=== PATIENT | male | born 1930 | race African-American/Black ===

== ENCOUNTER 2016-11-13 14:03 | Emergency (ER) | payer MEDICARE, OTHER ==
[~2016-11-13] VITALS: Ht 177.8 cm; Wt 65.8 kg
[~2016-11-13 14:03] MED LIST: ACET325T9 PO; ALPR0.25 PO; AMIN30LI PO; AMIO200T2 PO; ASCO500T3 PO; ASPI325T8 PO; CALC0.25 PO; CARV12.5 PO; CHOL100014 PO; CLON0.1T PO; FEXO180T81 PO; FURO-69 PO; HYDR-2758 PO; IPRA3AMP IH; LOSA100T6 PO; MAGN400T3 PO; MULT-245 PO; NITR0.4T22 SL; NITR1PAT11 TD; NITR1PAT5 TD; OMEP20TA8 PO; ONDA4TAB7 PO; POLY17PO29 PO; SERT50TA PO; SIMV20TA3 PO; SODI650T PO; VIT1TABL57 PO
--- NOTE | 2016-11-13 15:41 | RAD ---
Chest x-ray Indication: Shortness of breath Technique: Portable AP upright chest x-ray Comparison: Previous study from 06/02/2014 Findings: Stable position of left chest wall cardiac device with its leads projecting over the heart. Heart is slightly enlarged in size. Interstitial opacities are seen in the medial aspect of the bilateral lower lobes, left more than right.. No pneumothorax or pleural effusion. Visualized bony thorax is within normal limits. Impression: Prominent interstitial opacities in the medial aspect of the bilateral lower lobes, left more than right may suggest infectious process.
[2016-11-13 15:47] LABS: BASO # 0.1 x10^3/uL (0.0-0.2); BASO % 1 % (0-3); EOS % 2 % (0-3); HEMATOCRIT 27.6 % (39.0-53.0); LYMPH # 0.9 x10^3/uL (1.0-4.8); LYMPH % 14 % (24-48); MEAN CORPUSCULAR HEMOGLOBIN 33 pg (25-35); MEAN CORPUSCULAR HGB CONC 33 g/dL (31-37); MEAN CORPUSCULAR VOLUME 99 fL (79-100); MONO % 12 % (0-9); NEUT % 71 % (31-73); PLATELET COUNT 243 x10^3/uL (140-400); RED BLOOD COUNT 2.78 x10^6/uL (4.30-5.70); RED CELL DISTRIBUTION WIDTH 17.5 % (11.5-14.5)
[2016-11-13 16:04] LABS: CALCIUM 8.6 mg/dL (8.5-10.1); CREATININE 10.8 mg/dL (0.7-1.3); GFR 5.5
[2016-11-13 16:05] LABS: POTASSIUM 4.9 mmol/L (3.5-5.1)
--- NOTE | 2016-11-13 17:27 | PHYS DOC ---
Past Medical History Past Medical History: A-Fib, Anemia, Anxiety, CHF, Depression, GERD, High Cholesterol, Heart Disease, Hypertension, Renal Disease, Renal Failure, Other Additional Past Medical Histor: kidney disease, edema, PVD, cardiac tamponade, Past Surgical History: Appendectomy, Pacemaker Additional Past Surgical Histo: right kidney removed; vasectomy Alcohol Use: None Drug Use: None Adult General Chief Complaint Chief Complaint: DIALYSIS PROBLEM HPI HPI Patient is a 86 year old male [facility] patient with history of end-stage renal disease requiring dialysis who presents with a blocked left upper extremity AV fistula. Patient has an outpatient fistulogram scheduled tomorrow morning per interventional radiology. He was referred to the emergency department for evaluation. Patient eyes chest pain shortness of breath, dizziness or lightheadedness. No other acute symptoms or complaints.[] Review of Systems Review of Systems His symptoms as per history of present illness. All other review symptoms are negative. Allergies Allergies Allergies Coded Allergies Type Severity Reaction Last Updated Verified No Known Medication Allergies Allergy Unknown 03/30/14 Yes Physical Exam Physical Exam Constitutional: Well developed, well nourished, no acute distress, non-toxic appearance. [] HENT: Normocephalic, atraumatic, bilateral external ears normal, oropharynx moist, no oral exudates, nose normal. [] Eyes: PERRLA, EOMI, conjunctiva normal, no discharge. [] Neck: Normal range of motion, no tenderness, supple, no stridor. [] Cardiovascular:Heart rate regular rhythm, no murmur [] Lungs & Thorax: Bilateral breath sounds clear to auscultation [] Abdomen: Bowel sounds normal, soft, no tenderness, no masses, no pulsatile masses. [] Skin: Warm, dry, no erythema, no rash. [] Back: No tenderness, no CVA tenderness. [] Extremities: L Upper extremity, AV fistula, palpable thrill. No active bleeding. Distal pulses. [] Neurologic: Alert and oriented X 3, normal motor function, normal sensory function, no focal deficits noted. [] Psychologic: Affect normal, judgement normal, mood normal. [] Current Patient Data Vital Signs Vital Signs Date Time Temp Pulse Resp B/P (MAP) Pulse Ox O2 Delivery O2 Flow Rate FiO2 11/13/16 18:52 67 20 143/82 (102) 96 Room Air 11/13/16 14:05 97.7 97.7 Lab Values Laboratory Tests Test 11/13/16 15:39 White Blood Count 7.0 x10^3/uL (4.0-11.0) Red Blood Count 2.78 x10^6/uL (4.30-5.70) L Hemoglobin 9.0 g/dL (13.0-17.5) L Hematocrit 27.6 % (39.0-53.0) L Mean Corpuscular Volume 99 fL (79-100) Mean Corpuscular Hemoglobin 33 pg (25-35) Mean Corpuscular Hemoglobin Concent 33 g/dL (31-37) Red Cell Distribution Width 17.5 % (11.5-14.5) H Platelet Count 243 x10^3/uL (140-400) Neutrophils (%) (Auto) 71 % (31-73) Lymphocytes (%) (Auto) 14 % (24-48) L Monocytes (%) (Auto) 12 % (0-9) H Eosinophils (%) (Auto) 2 % (0-3) Basophils (%) (Auto) 1 % (0-3) Neutrophils # (Auto) 5.0 x10^3uL (1.8-7.7) Lymphocytes # (Auto) 0.9 x10^3/uL (1.0-4.8) L Monocytes # (Auto) 0.8 x10^3/uL (0.0-1.1) Eosinophils # (Auto) 0.2 x10^3/uL (0.0-0.7) Basophils # (Auto) 0.1 x10^3/uL (0.0-0.2) Sodium Level 141 mmol/L (136-145) Potassium Level 4.9 mmol/L (3.5-5.1) Chloride Level 104 mmol/L (98-107) Carbon Dioxide Level 21 mmol/L (21-32) Anion Gap 16 (6-14) H Blood Urea Nitrogen 54 mg/dL (8-26) H Creatinine 10.8 mg/dL (0.7-1.3) H Estimated GFR (Cockcroft-Gault) 5.5 Glucose Level 102 mg/dL (70-99) H Calcium Level 8.6 mg/dL (8.5-10.1) Laboratory Tests 11/13/16 15:39 Laboratory Tests 11/13/16 15:39 EKG EKG [] Radiology/Procedures Radiology/Procedures [Chest x-ray: No disease per radiology report] Course & Med Decision Making Course & Med Decision Making Pertinent Labs and Imaging studies reviewed. (See chart for details) [Patient asymptomatic. Since stable. No findings of congestive heart failure. I did speak with the on-call interventional ] Dragon Disclaimer Dragon Disclaimer This electronic medical record was generated, in whole or in part, using a voice recognition dictation system. Departure Departure Impression: Primary Impression: Complication of AV dialysis fistula Disposition: HOME, SELF-CARE Condition: STABLE Referrals: SURAJ FIGUEROA MD (PCP) Patient Instructions: Medical Screening Exam Additional Instructions: Memo was evaluated for a blocked AV fistula. Memo's potassium level is stable. An outpatient fistulogram is scheduled tomorrow morning at [facility] at 07:00. This appointment has been confirmed with interventional radiology scheduling. Please keep nothing by mouth after midnight and arrive at [facility] at scheduled time. FRANCESCA FOSTER DO Nov 13, 2016 17:27
[2016-11-13 18:52] VITALS: BP 143/82
[2016-11-14] MEDS ORDERED: MIRT15TA PO (07:55)
[2016-11-14] MEDS ORDERED: PANT40TA3 PO (07:55)
[2016-11-14] MEDS ORDERED: ASPI-482 PO (17:41)
[2016-11-14] MEDS ORDERED: MELA3TAB2 PO (17:57)
[2016-11-14] MEDS ORDERED: SENN8.6T99 PO (17:57)
[2016-11-14] MEDS ORDERED: RANI150C PO (17:57)
[2016-11-14] MEDS ORDERED: DOCU-109 PO (17:57)
== END 2016-11-13 18:55 | disposition home or self-care (01) ==
LOC: ER 14:03
DX: T82.898A Other specified complication of vascular prosthetic devices, implants and grafts, initial encounter (principal); I12.0 Hypertensive chronic kidney disease with stage 5 chronic kidney disease or end stage renal disease; N18.6 End stage renal disease; I50.9 Heart failure, unspecified; Z99.2 Dependence on renal dialysis; Z95.0 Presence of cardiac pacemaker; I48.91 Unspecified atrial fibrillation; E78.00 Pure hypercholesterolemia, unspecified; K21.9 Gastro-esophageal reflux disease without esophagitis; I73.9 Peripheral vascular disease, unspecified; Z90.49 Acquired absence of other specified parts of digestive tract; F32.9 Major depressive disorder, single episode, unspecified; Y84.8 Other medical procedures as the cause of abnormal reaction of the patient, or of later complication, without mention of misadventure at the time of the procedure; Y92.89 Other specified places as the place of occurrence of the external cause
CPT/HCPCS: 36415; 71010; 80048; 85025; 99285-25

== ENCOUNTER 2016-11-14 06:55 | Outpatient (CLI) | payer MEDICARE, OTHER ==
[~2016-11-14] VITALS: Ht 170.2 cm; Wt 72.6 kg
[2016-11-14 07:46] LABS: BASO # 0.1 x10^3/uL (0.0-0.2); BASO % 1 % (0-3); EOS % 2 % (0-3); HEMATOCRIT 31.4 % (39.0-53.0); LYMPH % 13 % (24-48); MEAN CORPUSCULAR HEMOGLOBIN 32 pg (25-35); MEAN CORPUSCULAR HGB CONC 32 g/dL (31-37); MEAN CORPUSCULAR VOLUME 99 fL (79-100); MONO % 7 % (0-9); NEUT % 78 % (31-73); PLATELET COUNT 305 x10^3/uL (140-400); RED BLOOD COUNT 3.15 x10^6/uL (4.30-5.70); WHITE BLOOD COUNT 7.9 x10^3/uL (4.0-11.0)
[2016-11-14] MEDS ORDERED: IODIXANOL 320 MG/ML 100 ML VIAL. ONE (07:49)
[2016-11-14] MEDS ORDERED: LIDOCAINE 1% / SOD BICARB 8.4% 20 ML VIAL. IJ ONE ×2 (07:49→09:15)
[2016-11-14] MEDS ORDERED: PANT40TA3 PO (07:55)
[2016-11-14] MEDS ORDERED: MIRT15TA PO (07:55)
[2016-11-14 08:03] LABS: INR 0.9 (0.8-1.1); PROTHROMBIN TIME PATIENT 11.9 SEC (11.7-14.0)
[2016-11-14 08:08] LABS: CALCIUM 9.1 mg/dL (8.5-10.1); CREATININE 11.7 mg/dL (0.7-1.3); POTASSIUM 5.4 mmol/L (3.5-5.1)
[2016-11-14 08:22] VITALS: BP 145/67
--- NOTE | 2016-11-14 08:34 | PDOC1 ---
IR Pre-Procedure H&P H&P Update No significant change from Dr. Denise's ER H&P done 11/13/16. DINAH VALENCIA MD Nov 14, 2016 08:34
[2016-11-14] MEDS ORDERED: fentaNYL PF VIAL 100 MCG/2 ML VIAL ONE (08:39)
[2016-11-14] MEDS ORDERED: MIDAZOLAM HCL/PF 2 MG/2 ML VIAL. ONE (08:39)
[2016-11-14] MEDS ORDERED: HEPARIN for IV BOLUS 10,000 UNIT/10 ML VIAL. ONE (08:40)
[2016-11-14] MEDS ORDERED: CONTRAST GIVEN MC PRN (09:15)
[2016-11-14] MEDS ORDERED: IODIXANOL 320 MG/ML 100 ML VIAL. IART ONE (09:15)
[2016-11-14] MEDS ORDERED: MIDAZOLAM HCL/PF 2 MG/2 ML VIAL. IV ONE (09:15)
[2016-11-14] MEDS ORDERED: fentaNYL PF VIAL 100 MCG/2 ML VIAL IV ONE (09:15)
[2016-11-14] MEDS ORDERED: ALTEPLASE 2 MG VIAL INT CAT ONE (09:45)
--- NOTE | 2016-11-14 10:04 | PDOC ---
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
[2016-11-14 11:02] VITALS: BP 132/60
[2016-11-14 11:17] VITALS: BP 127/59
[2016-11-14 11:32] VITALS: BP 120/60
[2016-11-14 11:47] VITALS: BP 122/56
[2016-11-14 12:17] VITALS: BP 133/64
--- NOTE | 2016-11-14 13:07 | RAD ---
Procedure: 1. Left upper extremity dialysis fistulogram. 2. TPA lysing and manual external massage for attempted treatment of pseudoaneurysm, Fistula has a palpable thrill prior to intervention. The procedure, risks, and complications, to include bleeding, infection, fistula rupture, need for a dialysis catheter were explained to the patient and they understood and wished to proceed. Consent form signed. The left upper extremity was prepped and draped using maximal sterile technique and 1% Xylocaine used for local anesthesia. A micropuncture needle was used to access the fistula directed toward the outflow tract. A 0.018 wire was advanced through the micropuncture needle. Small dermatotomy was made. Micropuncture needle was removed and replaced with a micropuncture sheath. 0.018 wire and inner stiffener were removed. Fistulogram: Digital subtraction fistulogram was performed. Brisk flow was seen through the length of the fistula and outflow tract. There are areas of mild stenosis within the central aspect of the left cephalic vein as well as in the left brachiocephalic vein which were not flow limiting. There is also areas of [id number] stenosis within the fistula near the arterial anastomosis which also were not flow limiting. Nonocclusive thrombus was seen within two fusiform pseudoaneurysms. Next a 15 cm infusion length Speed Lyser catheter was advanced over the 0.018 wire. Manual pressure was held within the outflow tract while 6 mg of TPA were infused in the region of nonocclusive clot. Manual external massage was performed along the areas of pseudoaneurysm all pressure was held for 3 minutes. Repeat fistulogram showed no significant change in nonocclusive thrombus size. Thrombus is likely chronic within the pseudoaneurysms and given the brisk flow through the remainder of the fistula, no further intervention was deemed necessary at this time. The infusion catheter was removed and stasis was achieved with pursestring suture and manual compression. Sedation: Conscious sedation for 43 minutes. Intravenous Versed and fentanyl were administered. The patient was monitored by pulse oximetry and cardiovascular monitoring equipment and observed by the nurses in attendance. Complications: None Contrast: 61 ml's Visipaque. FLUOROSCOPY TIME 3.7 minutes DAP: 70 uGycm2 The patient tolerated the procedure well and was transferred out of the IR suite in stable condition. IMPRESSION: 1. Brisk flow was seen throughout the length of the fistula. There are areas of mild stenosis within the central aspect of the left cephalic vein and in the left brachiocephalic vein which were not flow limiting. Mild to moderate stenosis within the fistula near the arterial anastomosis was also not flow limiting. Given the brisk flow, angioplasty was deemed unnecessary at this time. 2. Nonocclusive clot within two areas of pseudoaneurysm in the fistula. These were attempted be treated with TPA lysing and manual external compression massage without significant improvement. Thrombus is likely chronic within the pseudoaneurysms and given the brisk flow through the remainder of the fistula, no further intervention was deemed necessary at this time. If the patient has persistent difficulties with dialysis, he can return at a later date for more aggressive measures including possible AngioJet thrombolysis/thrombectomy.
[2016-11-14] MEDS ORDERED: ASPI-482 PO (17:41)
[2016-11-14] MEDS ORDERED: DOCU-109 PO (17:57)
[2016-11-14] MEDS ORDERED: SENN8.6T99 PO (17:57)
[2016-11-14] MEDS ORDERED: MELA3TAB2 PO (17:57)
[2016-11-14] MEDS ORDERED: RANI150C PO (17:57)
[2016-11-15] MEDS ORDERED: SERT25TA4 PO (06:33)
[2016-11-15] MEDS ORDERED: ACET325T9 PO (06:33)
[2016-11-15] MEDS ORDERED: TRAM50TA PO (06:33)
[2016-11-15] MEDS ORDERED: CHOL10002 PO (06:33)
== END 2016-11-14 12:30 | disposition home or self-care (01) ==
LOC: INTRAD 06:55
PROVIDERS: ATTEND Internal Medicine Nephrology
DX: T82.858A Stenosis of other vascular prosthetic devices, implants and grafts, initial encounter (principal); I25.41 Coronary artery aneurysm; Z99.2 Dependence on renal dialysis; Z87.01 Personal history of pneumonia (recurrent); D64.9 Anemia, unspecified; I07.1 Rheumatic tricuspid insufficiency; I25.5 Ischemic cardiomyopathy; I10 Essential (primary) hypertension; E66.9 Obesity, unspecified; M19.90 Unspecified osteoarthritis, unspecified site; Z86.14 Personal history of Methicillin resistant Staphylococcus aureus infection; I48.91 Unspecified atrial fibrillation; E78.00 Pure hypercholesterolemia, unspecified; I50.9 Heart failure, unspecified; Z90.5 Acquired absence of kidney; K21.9 Gastro-esophageal reflux disease without esophagitis; Z85.528 Personal history of other malignant neoplasm of kidney; F41.9 Anxiety disorder, unspecified; F32.9 Major depressive disorder, single episode, unspecified
CPT/HCPCS: 36415; 36904; 76937; 80048; 85025; 85610; 99152; 99153; C1757; C1769; C1892; J1644; J2997

== ENCOUNTER 2016-11-14 12:35 | Inpatient (IN) | payer MEDICARE, OTHER ==
[~2016-11-14] VITALS: Ht 170.2 cm; Wt 75.3 kg
[~2016-11-14 12:35] MED LIST changes: +MIRT15TA PO; +PANT40TA3 PO
--- NOTE | 2016-11-14 13:05 | PHYS DOC ---
Past Medical History Past Medical History: A-Fib, Anemia, Anxiety, CHF, Depression, GERD, High Cholesterol, Heart Disease, Hypertension, Renal Disease, Renal Failure, Other Additional Past Medical Histor: kidney disease, edema, PVD, cardiac tamponade, Past Surgical History: Appendectomy, Pacemaker Additional Past Surgical Histo: right kidney removed; vasectomy Alcohol Use: None Drug Use: None Adult General Chief Complaint Chief Complaint: hyperkalemia HPI HPI Patient is a 86 year old male who presents for admission due to hyperkalemia and missed dialysis. Pt's shunt was clotted and required opening by tPA this morning. This was performed and labwork performed. Pt's K is elevated and pt has increasing Cr and BUN, pt has no access to dialysis today and he hasn't been dialyzed since last Sunday. Pt recommended to be admitted by nephrology , Dr. Hu, for dialysis as pt is at risk for worsening and had reportedly had some SOB. At this time, pt denies any symptoms of chest pain or SOB. Review of Systems Review of Systems Constitutional: Denies fever or chills [] Eyes: Denies change in visual acuity, redness, or eye pain [] HENT: Denies nasal congestion or sore throat [] Respiratory: Denies cough or shortness of breath [] Cardiovascular: denies chest pain GI: Denies abdominal pain, nausea, vomiting, bloody stools or diarrhea [] : Denies dysuria or hematuria [] Musculoskeletal: Denies back pain or joint pain [] Integument: Denies rash or skin lesions [] Neurologic: Denies headache, focal weakness or sensory changes [] Allergies Allergies Allergies Coded Allergies Type Severity Reaction Last Updated Verified No Known Medication Allergies Allergy Unknown 11/14/16 Yes Physical Exam Physical Exam Constitutional: Well developed, well nourished, no acute distress, non-toxic appearance. [] HENT: Normocephalic, atraumatic, bilateral external ears normal, oropharynx moist, no oral exudates, nose normal. [] Eyes: PERRLA, EOMI, conjunctiva normal, no discharge. [] Neck: Normal range of motion, no tenderness, supple, no stridor. [] Cardiovascular:Heart rate regular with regular rhythm Lungs & Thorax: Bilateral breath sounds clear to auscultation [] Abdomen: Bowel sounds normal, soft, no tenderness, no masses, no pulsatile masses. [] Skin: Warm, dry, no erythema, no rash. [] Back: No tenderness, no CVA tenderness. [] Extremities: No tenderness, no cyanosis, no clubbing, ROM intact, no significant edema pt has wraps on legs. [] Neurologic: Alert and oriented X 3, normal motor function, normal sensory function, no focal deficits noted. [] Psychologic: Affect normal, judgement normal, mood normal. [] Current Patient Data Vital Signs Vital Signs Date Time Temp Pulse Resp B/P (MAP) Pulse Ox O2 Delivery O2 Flow Rate FiO2 11/14/16 12:35 97.5 66 20 138/60 (86) 100 Room Air 97.5 EKG EKG 66 bpm, sinus, leftward axis, ongoing prolonged QRS of 126, TX interval 258, no ST elevation or depression appreciated, nonischemic T waves, compared to previous EKG performed and there is no acute change appreciated , interpreted by me Radiology/Procedures Radiology/Procedures Performed on 11/13 CXR: Impression: Prominent interstitial opacities in the medial aspect of the bilateral lower lobes, left more than right may suggest infectious process. Course & Med Decision Making Course & Med Decision Making Pertinent Labs and Imaging studies reviewed. (See chart for details) Reviewed patient's outpatient lab work that was done earlier today. Slight elevated potassium, no EKG changes. Patient has increasing BUN/creatinine. I contacted Dr. Austin who accepted this patient for admission. Dragon Disclaimer Dragon Disclaimer This electronic medical record was generated, in whole or in part, using a voice recognition dictation system. Departure Departure Impression: Primary Impression: Hyperkalemia Additional Impression: End stage renal disease Disposition: ADMITTED INPATIENT Condition: STABLE Problem Qualifiers ABRAHAN WHEAT MD Nov 14, 2016 13:05
--- NOTE | 2016-11-14 14:15 | EKG ---
[facility] [address] [place] [address] Test Date: 2016-11-14 Test Time: 12:48:08 Pat Name: ELI GARZON Department: Room: 2 Gender: M Director Food Safety: : 1930 Requested By: ABRAHAN WHEAT Order Number: [id number] Reading MD: Nilton Renteria Measurements Intervals [place] Rate: 66 P: -32 [place]: 258 QRS: -73 QRSD: 126 T: 81 QT: 440 QTc: 463 Interpretive Statements SINUS RHYTHM PROLONGED [place] INTERVAL ABNORMAL LEFT AXIS DEVIATION NON SPECIFIC INTRAVENTRICULAR BLOCK QRS(T) CONTOUR ABNORMALITY CONSISTENT WITH ANTEROSEPTAL INFARCT PROBABLY OLD Electronically Signed On 12-06-2016 16:06:33 CDT by Nilton Renteria
[2016-11-14 15:29] VITALS: BP 135/63
[2016-11-14] MEDS ORDERED: IV NORMAL SALINE 1000ML BAG 1,000 ML IV PRN ×2 (16:22)
[2016-11-14] MEDS ORDERED: DIALYSIS PATIENT. MC PRN ×2 (16:30)
[2016-11-14] MEDS ORDERED: ASPI-482 PO (17:41)
[2016-11-14] MEDS ORDERED: DOCU-109 PO (17:57)
[2016-11-14] MEDS ORDERED: RANI150C PO (17:57)
[2016-11-14] MEDS ORDERED: SENN8.6T99 PO (17:57)
[2016-11-14] MEDS ORDERED: MELA3TAB2 PO (17:57)
[2016-11-14 22:45] VITALS: BP 121/56
[2016-11-15 03:28] VITALS: BP 110/53
[2016-11-15] MEDS ORDERED: NITROGLYCERIN SUBLINGUAL 0.4 MG BOTTLE OF 25. SL PRN (05:45)
[2016-11-15] MEDS ORDERED: MAGNESIUM HYDROXIDE 2,400 MG/30 ML ORAL.SUSP. PO PRN (05:45)
[2016-11-15] MEDS ORDERED: ACETAMINOPHEN 325 MG TABLET. PO PRN (05:45)
--- NOTE | 2016-11-15 05:55 | PDOC1 ---
IVANA VILLA RESIDENTIAL FRAMING CARPENTER 11/15/16 0555: HISTORY AND PHYSICAL Chief Complaint Chief Complaint This 86 year old male has been admitted with a chief complaint of malfunctioning AV fistula with no dialysis since last Sunday. He was seen in the ED on 11/13/16 for evaluation of malfunctioning AV fistula. A procedure to treat the AV fistula was planned for 11/14/16. [facility] The [facility] procedure on 11/14/16 outcome: TPA/manual massage external in attempt to treat pseudoaneurysm: Brisk flow was seen throughout the length of the fistula. There are areas of mild stenosis within the central aspect of the left cephalic vein and in the left brachiocephalic vein which were not flow limiting. Mild to moderate stenosis within the fistula near the arterial anastomosis was also not flow limiting. Given the brisk flow, angioplasty was deemed unnecessary at this time. 2. Nonocclusive clot within two areas of pseudoaneurysm in the fistula. These were attempted be treated with TPA lysing and manual external compression massage without significant improvement. Thrombus is likely chronic within the pseudoaneurysms and given the brisk flow through the remainder of the fistula, no further intervention was deemed necessary at this time. If the patient has persistent difficulties with dialysis, he can return at a later date for more aggressive measures including possible AngioJet thrombolysis/thrombectomy. From IR he went to ER for evaluation for worsening dyspnea and no dialysis since last Sun. He was hyperkalemic with K 5.4 prior to IR procedure. BUN 61 with Cr elevated to 11.4. He is admitted for further evaluation and treatment. He did receive dialysis last evening. Problem List Problems Medical Problems: (1) End stage renal disease Status: Acute (2) Hyperkalemia Status: Acute Past Medical History Cardiovascular: AFIB, CAD (old inferior [place] ), CHF (systolic diastolic EF 25% ) , HTN, [place], Hyperlipidemia, Pulmonary hypertension, Other (h/o pericardial effusion; h/o tamponade with anticoagulation, PVD ) Pulmonary: Pneumonia, Other CENTRAL NERVOUS SYSTEM: Periperal neuropathy, Other GI: GERD Heme/Onc: Anemia NOS (Fe, ESRD ) Psych: Anxiety, Depression Musculoskeletal: Weakness Renal/: Chronic renal failure (ESRD AV fistula LUE ), Prostate Ca. Past Surgical History PSH Stent LAD 03/2010; prostatectomy, appendectomy, nephrectomy R Past Surgical History: Pacemaker (AICD 03/2010), Appendectomy Past Family History Family History: Heart Disease Past Social History PSH , support , [place] resident. Remote h/o smoking, no ETOH or illicit drugs. Review of Symptoms Review of Symptoms A 14 point ROS was completed with the following noted as positive: per HPI Other systems reviewed and negative. Medications Medications reviewed and reconciled. Allergy Allergies Coded Allergies Type Severity Reaction Last Updated Verified No Known Medication Allergies Allergy Unknown 11/14/16 Yes Physical Exam Physical Exam General appearance - alert,well appearing, and in no distress Mental Status - alert, oriented to person, place, and time, affect appropriate to mood Head - normal Chest - clear to auscultation, no wheezes, rales or rhonchi, symmetric air entry Heart - S1 and S2 normal Abdomen - soft, nontender, nondistended, BS+ Neurological - no acute focal neurological deficit noted. Musculoskeletal - no muscular tenderness noted Extremities - no pedal edema, AV fistula LAC Skin - warm and dry VTE Prophylaxis Ordered VTE Prophylaxis Devices: Yes VTE Pharmacological Prophylaxi: No Plan Plan IMPRESSION: 1. malfunctioning AV fistula with pseudoaneurysm and clot. 2. acute on chronic CHF systolic EF 25% diastolic 3. hypokalemia 4. ischemic CM with AICD 5. anemia ESRD/Fe 6. CAD with h/o [place], PCI LAD 7. moderate weakness and debility chronic 8. moderate PCL malnutrition chronic 9. HTN 10. hyperlipidemia 11. ESRD hemodialysis MWF 12. h/o prostate Ca with prostatectomy 13. h/o AFib not coumadin candidate 14. pulmonary HTN 15. peripheral neuropathy 16. anxiety 17. depression PLAN: 11/15/16 malfunctioning AV fistula - IR procedure 11/14- dialysis resumed evening ESRD - nephrology consulte - dialysis 11/14/16 evening -- 11/14 morning BUN 61 Cr 11.4 hyperkalemia - lab pending 11/14 K 5.4 A/C CHF - improving with restarting dialysis ECHO 01/2016 EF 25% diastolic anemia CD 11/14 Hgb 10.0 Will initiate DC orders. Plan DC later today if okay with Nephrology. For more details regarding further plans, please refer to the orders. SURAJ FIGUEROA MD 11/15/16 1013: HISTORY AND PHYSICAL Plan Plan Doing better with HD. Ok to discharge. The patient was seen and examined by me. Chart reviewed and plan of care formulated. Discussed with, reviewed and agree with IMPROVEMENT ANALYST's notes, plan of care and orders with modifications as necessary. For more details regarding further plans, please refer to the orders. IVANA VILLA APRN Nov 15, 2016 05:55 SURAJ FIGUEROA MD Nov 15, 2016 10:13
--- NOTE | 2016-11-15 06:30 | DISCH ---
DISCHARGE FINAL DIAGNOSIS Problems Medical Problems: (1) End stage renal disease Status: Acute (2) Hyperkalemia Status: Acute CONDITION ON DISCHARGE: Stable POST DISCHARGE ORDERS ACTIVITY ORDERS: Activity as tolerated WEIGHT BEARING STATUS: No restrictions DIET AFTER DISCHARGE: Renal WOUND/INCISION CARE: Keep wound/cast CDI CHECKS AFTER DISCHARGE COMMENTS: VS per routine--weigh weekly FOLLOW-UP PHYSICIAN FOLLOW-UP: Admit to facility ADDITIONAL FOLLOW-UP: Dialysis [facility] [place] out patient LAB ORDERS FOR FOLLOW-UP: CBC with diff, CMP, Prealb in AM after admit IVANA VILLA APRN Nov 15, 2016 06:30
[2016-11-15] MEDS ORDERED: CHOL10002 PO (06:33)
[2016-11-15] MEDS ORDERED: TRAM50TA PO (06:33)
[2016-11-15] MEDS ORDERED: SERT25TA4 PO (06:33)
[2016-11-15] MEDS ORDERED: ACET325T9 PO (06:33)
[2016-11-15] MEDS ORDERED: AMIODARONE HCL 200 MG TABLET. PO SCH (07:00)
[2016-11-15 07:10] VITALS: BP 140/56
[2016-11-15] MEDS ORDERED: PANTOPRAZOLE 40 MG TABLET.DR. PO SCH (07:30)
[2016-11-15 08:13] LABS: BASO % 1 % (0-3); EOS % 1 % (0-3); HEMATOCRIT 26.8 % (39.0-53.0); HEMOGLOBIN 8.8 g/dL (13.0-17.5); LYMPH # 0.9 x10^3/uL (1.0-4.8); LYMPH % 13 % (24-48); MEAN CORPUSCULAR HEMOGLOBIN 33 pg (25-35); MEAN CORPUSCULAR HGB CONC 33 g/dL (31-37); MEAN CORPUSCULAR VOLUME 99 fL (79-100); MONO % 10 % (0-9); NEUT % 75 % (31-73); PLATELET COUNT 235 x10^3/uL (140-400); RED BLOOD COUNT 2.71 x10^6/uL (4.30-5.70); WHITE BLOOD COUNT 7.1 x10^3/uL (4.0-11.0)
[2016-11-15 08:25] LABS: CALCIUM 8.5 mg/dL (8.5-10.1); CREATININE 6.7 mg/dL (0.7-1.3); GFR 9.5; POTASSIUM 4.1 mmol/L (3.5-5.1)
[2016-11-15] MEDS ORDERED: IV NORMAL SALINE 1000ML BAG 1,000 ML IV PRN (08:55)
[2016-11-15] MEDS ORDERED: FOLIC/VIT B COMP W-C (RENAL) TABLET. PO SCH (09:00)
[2016-11-15] MEDS ORDERED: DIALYSIS PATIENT. MC PRN (09:00)
[2016-11-15] MEDS ORDERED: traMADol 50 MG TABLET PO SCH (09:00)
[2016-11-15] MEDS ORDERED: CHOLECALCIFEROL (VITAMIN D3) 1,000 UNIT TABLET PO SCH (09:00)
[2016-11-15] MEDS ORDERED: POLYETHYLENE GLYCOL 3350 17 GM PACKET. PO SCH (09:00)
[2016-11-15] MEDS ORDERED: diphenhydrAMINE 50 MG/ML VIAL IV PRN ×2 (09:00)
[2016-11-15] MEDS ORDERED: MAGNESIUM OXIDE 400 MG TABLET PO SCH (09:00)
[2016-11-15] MEDS ORDERED: ASPIRIN ENTERIC COATED 81 MG TABLET.DR. PO SCH (09:00)
[2016-11-15] MEDS ORDERED: ACETAMINOPHEN 325 MG TABLET. PO SCH (09:00)
[2016-11-15] MEDS ORDERED: SENNOSIDES 8.6 MG TABLET PO SCH (09:00)
[2016-11-15] MEDS ORDERED: DOCUSATE SODIUM 100 MG CAPSULE. PO SCH (09:00)
[2016-11-15] MEDS ORDERED: ASCORBIC ACID 500 MG TABLET PO SCH (09:00)
[2016-11-15] MEDS ORDERED: FAMOTIDINE 20 MG TABLET. PO SCH (09:00)
[2016-11-15] MEDS ORDERED: LIDOCAINE 1% PF 2 ML VIAL. ID STA (09:38)
--- NOTE | 2016-11-15 12:21 | PDOC2 ---
CONSULT Date of Consult Date of Consult DATE: 11/15/16 TIME: 12:15 Reason for Consult Reason for Consult: ESRD PT WITH AN DYSFUNCTIONAL AV ACCESS Referring Physician Referring Physician: HENRY Identification/Chief Complaint Chief Complaint SOB Problems: Source Source: Chart review, Patient History of Present Illness Reason for Visit: THIS IS AN 86 YR OLD ADMITTED WITH SOB. HX NOTABLE FOR ESRD. HE HAS BEEN HAVING PROBLEMS WITH HIS AVF AND HAS NOT HAD ANY DIALYSIS SINCE LAST SUN. HAS ACCESS TREATED HERE IN THE OP SETTING. OP DIALYSIS UNIT REFUSED TO TAKE HIM BACK DUE TO LACK OF DIALYSIS SINCE LAST SUN. HE WAS ALSO SLIGHTLY SOB AND HYPERVOLEMIC. LABS C/W ESRD. HE WAS ADMITTED DUE TO ABOVE. OP HD SCHEDULE IS MWF Past Medical History Cardiovascular: AFIB, CAD (old inferior [place] ), CHF (systolic diastolic EF 25% ) , HTN, [place], Hyperlipidemia, Pulmonary hypertension, Other (h/o pericardial effusion; h/o tamponade with anticoagulation, PVD ) Pulmonary: Pneumonia, Other CENTRAL NERVOUS SYSTEM: Periperal neuropathy, Other GI: GERD Heme/Onc: Anemia NOS (Fe, ESRD ) Psych: Anxiety, Depression Musculoskeletal: Weakness Renal/: Chronic renal failure (ESRD AV fistula LUE ), Prostate Ca. Endocrine: Hyperparathyroidism Past Surgical History Past Surgical History: Pacemaker (AICD 03/2010), Appendectomy Family History Family History: Heart Disease Social History ALCOHOL: none Drugs: None Lives: Residential Domestic Violence: Neg Current Problem List Problem List Problems Medical Problems: (1) End stage renal disease Status: Acute (2) Hyperkalemia Status: Acute Current Medications Current Medications Current Medications Sodium Chloride 1,000 ml @ 1,000 mls/hr Q1H PRN IV hypotension; Start 11/14/16 at 16:22; Stop 11/14/16 at 22:21; Status DC Sodium Chloride 1,000 ml @ 400 mls/hr Q2H30M PRN IV PATENCY; Start 11/14/16 at 16:22; Stop 11/15/16 at 04:21; Status DC Info (PHARMACY MONITORING -- do not chart) 1 each PRN DAILY PRN MC SEE COMMENTS ; Start 11/14/16 at 16:30; Status UNV Info (PHARMACY MONITORING -- do not chart) 1 each PRN DAILY PRN MC SEE COMMENTS ; Start 11/14/16 at 16:30 Acetaminophen (Tylenol) 650 mg BID PO ; Start 11/15/16 at 09:00 Amiodarone HCl (Cordarone) 200 mg DAILY07 PO Last administered on 11/15/16 06: 09; Start 11/15/16 at 07:00 Ascorbic Acid (Vitamin C) 500 mg DAILY PO ; Start 11/15/16 at 09:00 Aspirin (Ecotrin) 81 mg DAILY PO ; Start 11/15/16 at 09:00 Docusate Sodium (Colace) 100 mg DAILY PO ; Start 11/15/16 at 09:00 Magnesium Oxide (Magnesium Oxide) 400 mg BID PO ; Start 11/15/16 at 09:00 Nitroglycerin (Nitrostat) 0.4 mg PRN Q5MIN PRN SL CHEST PAIN; Start 11/15/16 at 05:45 Pantoprazole Sodium (Protonix) 40 mg DAILYAC PO Last administered on 11/15/16 07:46; Start 11/15/16 at 07:30 Polyethylene Glycol (miraLAX PACKET) 17 gm DAILY PO ; Start 11/15/16 at 09:00 Sennosides (Senna) 8.6 mg BID PO ; Start 11/15/16 at 09:00 Atorvastatin Calcium (Lipitor) 10 mg QHS PO ; Start 11/15/16 at 21:00 Famotidine (Pepcid) 20 mg BID PO ; Start 11/15/16 at 09:00; Status UNV Vitamin B Complex/ Vitamin C (Lizet-David) 1 tab DAILY PO ; Start 11/15/16 at 09: 00 Sertraline HCl (Zoloft) 75 mg HS PO ; Start 11/15/16 at 21:00 Vitamin D (Vitamin D3) 1,000 unit DAILY PO ; Start 11/15/16 at 09:00 Tramadol HCl (Ultram) 50 mg BID PO ; Start 11/15/16 at 09:00 Magnesium Hydroxide (Milk Of Magnesia) 2,400 mg PRN DAILY PRN PO CONSTIPATION; Start 11/15/16 at 05:45; Status UNV Acetaminophen (Tylenol) 325 mg PRN Q4HRS PRN PO MILD PAIN / TEMP; Start at 05:45 Sodium Chloride 1,000 ml @ 1,000 mls/hr Q1H PRN IV hypotension; Start 11/15/16 at 08:55; Stop 11/15/16 at 14:54 Diphenhydramine HCl (Benadryl) 25 mg 1X PRN PRN IV ITCHING; Start 11/15/16 at 09:00; Stop 11/16/16 at 08:59 Diphenhydramine HCl (Benadryl) 25 mg 1X PRN PRN IV ITCHING; Start 11/15/16 at 09:00; Stop 11/16/16 at 08:59 Info (PHARMACY MONITORING -- do not chart) 1 each PRN DAILY PRN MC SEE COMMENTS ; Start 11/15/16 at 09:00; Status UNV Lidocaine HCl (Xylocaine-Mpf 1% Vial) 0.5 ml 1X STAT ID Last administered on 11/15/16t 09:48; Start 11/15/16 at 09:38; Stop 11/15/16 at 09:39; Status DC Active Scripts Active Tramadol Hcl 50 Mg Tablet 50 Mg PO BID Sertraline Hcl 25 Mg Tablet 75 Mg PO HS Vitamin D (Cholecalciferol (Vitamin D3)) 1,000 Unit Tablet 1,000 Unit PO DAILY Tylenol (Acetaminophen) 325 Mg Tablet 325 Mg PO PRN Q4HRS PRN Reported Senokot (Sennosides) 8.6 Mg Tablet 1 Tab PO BID Ranitidine Hcl 150 Mg Capsule 75 Mg PO BID Melatonin 3 Mg Tablet 6 Mg PO Colace (Docusate Sodium) 100 Mg Capsule 100 Mg PO Aspir 81 (Aspirin) 81 Mg Tablet.dr 1 Tab PO DAILY Protonix (Pantoprazole Sodium) 40 Mg Tablet.dr 40 Mg PO DAILY Ascorbic Acid 500 Mg Tablet 500 Mg PO DAILY Miralax (Polyethylene Glycol 3350) 17 Gm Powd.pack 1 Packet PO DAILY Nephro-David Rx Tablet (Vit B Cmplx 3/Fa/Vit C/Biotin) 1 Each Tablet 1 Each PO DAILY Simvastatin 20 Mg Tablet 20 Mg PO HS Magnesium Oxide 400 Mg Tablet 400 Mg PO BID Amiodarone Hcl 200 Mg Tablet 200 Mg PO DAILY07 Tylenol (Acetaminophen) 325 Mg Tablet 650 Mg PO BID NITROGLYCERIN SubLingual (Nitroglycerin) 0.4 Mg Tab.subl 0.4 Mg SL PRN Allergies Allergies: Coded Allergies: No Known Medication Allergies (Verified Allergy, Unknown, 11/14/16) ROS General: YES: Fatigue, Malaise, Appetite PSYCHOLOGICAL ROS: YES: Anxiety Eyes: Yes Decreased vision HEENT: YES: Heacaches Respiratory: YES: Cough, Orthopnea, Shortness of breath Cardiovascular: yes Orthopnea Gastrointestinal: Yes Constipation Genitourinary: YES Other (ANURIA) Musculoskeletal: Yes Muscular Weakness Neurological: Yes Weakness Skin: Yes Dry Skin Physical Exam General: Alert, Oriented X3, Cooperative, No acute distress HEENT: Atraumatic, PERRLA Lungs: Other (DECREASED AT BASES) Heart: Regular rate Abdomen: Normal bowel sounds, Soft, No tenderness Extremities: No clubbing, Other (AVF HAS A GOOD THRILL AND BRUIT) Skin: No breakdown Neuro: Normal speech, Cranial nerves 3-12 NL Psych/Mental Status: Mental status NL, Mood NL MUSCULOSKELETAL: No joint tenderness, No deformity, No muscular tenderness noted Vitals VITALS Vital Signs Date Time Temp Pulse Resp B/P (MAP) Pulse Ox O2 Delivery O2 Flow Rate FiO2 11/15/16 08:13 Room Air 11/15/16 07:10 98.1 81 18 140/56 (84) 100 98.1 Labs Labs Laboratory Tests Test 11/15/16 07:55 White Blood Count 7.1 x10^3/uL (4.0-11.0) Red Blood Count 2.71 x10^6/uL (4.30-5.70) Hemoglobin 8.8 g/dL (13.0-17.5) Hematocrit 26.8 % (39.0-53.0) Mean Corpuscular Volume 99 fL (79-100) Mean Corpuscular Hemoglobin 33 pg (25-35) Mean Corpuscular Hemoglobin Concent 33 g/dL (31-37) Red Cell Distribution Width 17.0 % (11.5-14.5) Platelet Count 235 x10^3/uL (140-400) Neutrophils (%) (Auto) 75 % (31-73) Lymphocytes (%) (Auto) 13 % (24-48) Monocytes (%) (Auto) 10 % (0-9) Eosinophils (%) (Auto) 1 % (0-3) Basophils (%) (Auto) 1 % (0-3) Neutrophils # (Auto) 5.4 x10^3uL (1.8-7.7) Lymphocytes # (Auto) 0.9 x10^3/uL (1.0-4.8) Monocytes # (Auto) 0.7 x10^3/uL (0.0-1.1) Eosinophils # (Auto) 0.1 x10^3/uL (0.0-0.7) Basophils # (Auto) 0.0 x10^3/uL (0.0-0.2) Sodium Level 138 mmol/L (136-145) Potassium Level 4.1 mmol/L (3.5-5.1) Chloride Level 100 mmol/L (98-107) Carbon Dioxide Level 27 mmol/L (21-32) Anion Gap 11 (6-14) Blood Urea Nitrogen 25 mg/dL (8-26) Creatinine 6.7 mg/dL (0.7-1.3) Estimated GFR (Cockcroft-Gault) 9.5 Glucose Level 89 mg/dL (70-99) Calcium Level 8.5 mg/dL (8.5-10.1) Laboratory Tests Test 11/15/16 07:55 White Blood Count 7.1 x10^3/uL (4.0-11.0) Red Blood Count 2.71 x10^6/uL (4.30-5.70) Hemoglobin 8.8 g/dL (13.0-17.5) Hematocrit 26.8 % (39.0-53.0) Mean Corpuscular Volume 99 fL (79-100) Mean Corpuscular Hemoglobin 33 pg (25-35) Mean Corpuscular Hemoglobin Concent 33 g/dL (31-37) Red Cell Distribution Width 17.0 % (11.5-14.5) Platelet Count 235 x10^3/uL (140-400) Neutrophils (%) (Auto) 75 % (31-73) Lymphocytes (%) (Auto) 13 % (24-48) Monocytes (%) (Auto) 10 % (0-9) Eosinophils (%) (Auto) 1 % (0-3) Basophils (%) (Auto) 1 % (0-3) Neutrophils # (Auto) 5.4 x10^3uL (1.8-7.7) Lymphocytes # (Auto) 0.9 x10^3/uL (1.0-4.8) Monocytes # (Auto) 0.7 x10^3/uL (0.0-1.1) Eosinophils # (Auto) 0.1 x10^3/uL (0.0-0.7) Basophils # (Auto) 0.0 x10^3/uL (0.0-0.2) Sodium Level 138 mmol/L (136-145) Potassium Level 4.1 mmol/L (3.5-5.1) Chloride Level 100 mmol/L (98-107) Carbon Dioxide Level 27 mmol/L (21-32) Anion Gap 11 (6-14) Blood Urea Nitrogen 25 mg/dL (8-26) Creatinine 6.7 mg/dL (0.7-1.3) Estimated GFR (Cockcroft-Gault) 9.5 Glucose Level 89 mg/dL (70-99) Calcium Level 8.5 mg/dL (8.5-10.1) Assessment/Plan Assessment/Plan IMP ESRD ANEMIA DYSFUNCTIONAL AV ACCESS S/P TPA OF POSSIBLE CLOT BURDEN IN AVF ANEURYSM SITE HTN HYPERVOLEMIA PLAN HD YESTERDAY - DID WELL AVF IS PATENT WITH A GOOD THRILL AND BRUIT HD AGAIN TODAY UF TO DW OK TO D/C FROM RENAL STANDPOINT CONT HOME MEDS NEXT OP HD ON SUNDAY JOSSE PLUMMER MD Nov 15, 2016 12:21
[2016-11-15 14:43] VITALS: BP 125/52
[2016-11-15] MEDS ORDERED: SERTRALINE 25 MG TABLET. PO SCH (21:00)
[2016-11-15] MEDS ORDERED: ATORVASTATIN CALCIUM 10 MG TABLET. PO SCH (21:00)
--- NOTE | 2016-11-21 14:34 | PDOC3 ---
This 86 year old male has been admitted with a chief complaint of malfunctioning AV fistula with no dialysis since last Sunday. He was seen in the ED on 11/13/16 for evaluation of malfunctioning AV fistula. A procedure to treat the AV fistula was planned for 11/14/16. Memo was sent back to the [facility]. The IR procedure on 11/14/16 outcome: TPA/manual massage external in attempt to treat pseudoaneurysm: Brisk flow was seen throughout the length of the fistula. There are areas of mild stenosis within the central aspect of the left cephalic vein and in the left brachiocephalic vein which were not flow limiting. Mild to moderate stenosis within the fistula near the arterial anastomosis was also not flow limiting. Given the brisk flow, angioplasty was deemed unnecessary at this time. 2. Nonocclusive clot within two areas of pseudoaneurysm in the fistula. These were attempted be treated with TPA lysing and manual external compression massage without significant improvement. Thrombus is likely chronic within the pseudoaneurysms and given the brisk flow through the remainder of the fistula, no further intervention was deemed necessary at this time. If the patient has persistent difficulties with dialysis, he can return at a later date for more aggressive measures including possible AngioJet thrombolysis/thrombectomy. From IR he went to ER for evaluation for worsening dyspnea and no dialysis since last Sun. He was hyperkalemic with K 5.4 prior to IR procedure. BUN 61 with Cr elevated to 11.4. He is admitted for further evaluation and treatment. He did receive dialysis last evening. Problem List Problems Medical Problems: (1) End stage renal disease Status: Acute (2) Hyperkalemia Status: Acute Past Medical History Cardiovascular: AFIB, CAD (old inferior [place] ), CHF (systolic diastolic EF 25% ) , HTN, [place], Hyperlipidemia, Pulmonary hypertension, Other (h/o pericardial effusion; h/o tamponade with anticoagulation, PVD ) Pulmonary: Pneumonia, Other CENTRAL NERVOUS SYSTEM: Periperal neuropathy, Other GI: GERD Heme/Onc: Anemia NOS (Fe, ESRD ) Psych: Anxiety, Depression Musculoskeletal: Weakness Renal/: Chronic renal failure (ESRD AV fistula LUE ), Prostate Ca. Past Surgical History PSH Stent LAD 03/2010; prostatectomy, appendectomy, nephrectomy R Past Surgical History: Pacemaker (AICD 03/2010), Appendectomy Past Family History Family History: Heart Disease Past Social History PSH , support , [place] resident. Remote h/o smoking, no ETOH or illicit drugs. Review of Symptoms Review of Symptoms A 14 point ROS was completed with the following noted as positive: per HPI Other systems reviewed and negative. Medications Medications reviewed and reconciled. Allergy Allergies Coded Allergies Type Severity Reaction Last Updated Verified No Known Medication Allergies Allergy Unknown 11/14/16 Yes Physical Exam Physical Exam General appearance - alert,well appearing, and in no distress Mental Status - alert, oriented to person, place, and time, affect appropriate to mood Head - normal Chest - clear to auscultation, no wheezes, rales or rhonchi, symmetric air entry Heart - S1 and S2 normal Abdomen - soft, nontender, nondistended, BS+ Neurological - no acute focal neurological deficit noted. Musculoskeletal - no muscular tenderness noted Extremities - no pedal edema, AV fistula LAC Skin - warm and dry VTE Prophylaxis Ordered VTE Prophylaxis Devices: Yes VTE Pharmacological Prophylaxi: No FINAL DIAGNOSIS: 1. malfunctioning AV fistula with pseudoaneurysm and clot. 2. acute on chronic CHF systolic EF 25% diastolic 3. hypokalemia 4. ischemic CM with AICD 5. anemia ESRD/Fe 6. CAD with h/o NH, PCI LAD 7. moderate weakness and debility chronic 8. moderate PCL malnutrition chronic 9. HTN 10. hyperlipidemia 11. ESRD hemodialysis MWF 12. h/o prostate Ca with prostatectomy 13. h/o AFib not coumadin candidate 14. pulmonary HTN 15. peripheral neuropathy 16. anxiety 17. depression PLAN: 11/15/16 malfunctioning AV fistula - IR procedure 11/14- dialysis resumed evening ESRD - nephrology consulte - dialysis 11/14/16 evening -- 11/14 morning BUN 61 Cr 11.4 hyperkalemia - lab pending 11/14 K 5.4 A/C CHF - improving with restarting dialysis ECHO 01/2016 EF 25% diastolic anemia CD 11/14 Hgb 10.0 Will initiate DC orders. Plan DC later today if okay with Nephrology. For more details regarding further plans, please refer to the orders. SURAJ FIGUEROA MD 11/15/16 1013: HISTORY AND PHYSICAL Plan Plan Doing better with HD. Ok to discharge. The patient was seen and examined by me. Chart reviewed and plan of care formulated. Discussed with, reviewed and agree with [employer]'s notes, plan of care and orders with modifications as necessary. For more details regarding further plans, please refer to the orders. IVANA VILLA APRN Nov 15, 2016 05:55 SURAJ FIGUEROA MD Nov 15, 2016 10:13 IVANA VILLA APRN Nov 21, 2016 14:34
[2017-01-20] MEDS ORDERED: DARB25DI SQ (08:21)
[2017-01-29] MEDS ORDERED: ACET650S11 PR (09:36)
[2017-01-29] MEDS ORDERED: FAMO20VI3 IVP (09:36)
[2017-01-29] MEDS ORDERED: DARB25DI SQ (09:36)
[2017-01-29] MEDS ORDERED: PIPE2.255 IVP (09:36)
[2017-01-29] MEDS ORDERED: METO5VIA4 IV (09:36)
[2017-01-29] MEDS ORDERED: IPRA3AMP NEB (09:36)
[2017-01-29] MEDS ORDERED: [UNRECOGNIZED DRUG - CODE] IV (09:41)
[2017-01-29] MEDS ORDERED: [UNRECOGNIZED DRUG - CODE] IV (09:42)
[2017-02-08] MEDS ORDERED: TRAM50TA PO (19:24)
[2017-02-09] MEDS ORDERED: MORP20SY PO (09:31)
[2017-02-09] MEDS ORDERED: LORA2ORA7 PO (09:31)
== END 2016-11-15 16:04 | DRG 314 ==
LOC: ER 12:35 → 6 SOUTH 13:00
PROVIDERS: ADMIT Internal Medicine; ATTEND Internal Medicine
PROC: 3E03317 Introduction of Other Thrombolytic into Peripheral Vein, Percutaneous Approach (ICD-10-PCS; principal; 2016-11-14)
PROC: 5A1D70Z Performance of Urinary Filtration, Intermittent, Less than 6 Hours Per Day (ICD-10-PCS; 2016-11-14)
DX: T82.868A Thrombosis due to vascular prosthetic devices, implants and grafts, initial encounter (principal); I50.43 Acute on chronic combined systolic (congestive) and diastolic (congestive) heart failure; I31.4 Cardiac tamponade; E44.0 Moderate protein-calorie malnutrition; I13.2 Hypertensive heart and chronic kidney disease with heart failure and with stage 5 chronic kidney disease, or end stage renal disease; E87.5 Hyperkalemia; I48.91 Unspecified atrial fibrillation; G62.9 Polyneuropathy, unspecified; N18.6 End stage renal disease; D63.1 Anemia in chronic kidney disease; E21.3 Hyperparathyroidism, unspecified; F32.9 Major depressive disorder, single episode, unspecified; E78.5 Hyperlipidemia, unspecified; I25.5 Ischemic cardiomyopathy; I25.10 Atherosclerotic heart disease of native coronary artery without angina pectoris; Y71.2 Prosthetic and other implants, materials and accessory cardiovascular devices associated with adverse incidents; E78.00 Pure hypercholesterolemia, unspecified; F41.9 Anxiety disorder, unspecified; K21.9 Gastro-esophageal reflux disease without esophagitis; I73.9 Peripheral vascular disease, unspecified; Z85.46 Personal history of malignant neoplasm of prostate; Z99.2 Dependence on renal dialysis; Z87.01 Personal history of pneumonia (recurrent); Z90.49 Acquired absence of other specified parts of digestive tract; I25.2 Old myocardial infarction; Z68.26 Body mass index [BMI] 26.0-26.9, adult; Z98.52 Vasectomy status; Z90.5 Acquired absence of kidney; Z91.15 Patient's noncompliance with renal dialysis
CPT/HCPCS: 36415; 71010; 80048; 85025; 93005; 99285-25

== ENCOUNTER 2016-12-27 02:25 | Inpatient (IN) | payer MEDICARE, OTHER ==
[~2016-12-27] VITALS: Ht 170.2 cm; Wt 67.8 kg
[~2016-12-27 02:25] MED LIST changes: +ASPI-482 PO; +CHOL10002 PO; +DOCU-109 PO; +MELA3TAB2 PO; +RANI150C PO; +SENN8.6T99 PO; +SERT25TA4 PO; +TRAM50TA PO
[2016-12-27] MEDS ORDERED: NITROGLYCERIN OINT 1 GM PACKET. TP ONE (03:00)
[2016-12-27 03:06] LABS: BASO # 0.1 x10^3/uL (0.0-0.2); BASO % 1 % (0-3); EOS % 0 % (0-3); HEMATOCRIT 34.8 % (39.0-53.0); HEMOGLOBIN 11.3 g/dL (13.0-17.5); LYMPH # 0.5 x10^3/uL (1.0-4.8); LYMPH % 4 % (24-48); MEAN CORPUSCULAR HEMOGLOBIN 33 pg (25-35); MEAN CORPUSCULAR HGB CONC 32 g/dL (31-37); MEAN CORPUSCULAR VOLUME 103 fL (79-100); MONO % 6 % (0-9); NEUT % 89 % (31-73); PLATELET COUNT 162 x10^3/uL (140-400); RED BLOOD COUNT 3.38 x10^6/uL (4.30-5.70); RED CELL DISTRIBUTION WIDTH 16.3 % (11.5-14.5); WHITE BLOOD COUNT 11.5 x10^3/uL (4.0-11.0)
[2016-12-27 03:17] LABS: CALCIUM 8.9 mg/dL (8.5-10.1); POTASSIUM 3.3 mmol/L (3.5-5.1)
[2016-12-27 03:23] LABS: ALBUMIN 2.4 g/dL (3.4-5.0); ALBUMIN/GLOBULIN RATIO 0.7 (1.0-1.7); TOTAL BILIRUBIN 0.6 mg/dL (0.2-1.0); TOTAL PROTEIN 5.8 g/dL (6.4-8.2)
[2016-12-27 04:13] LABS: PLT ESTIMATE ADEQUATE (ADEQUATE)
--- NOTE | 2016-12-27 04:20 | PHYS DOC ---
Past Medical History Past Medical History: A-Fib, Anemia, Anxiety, CHF, Depression, GERD, High Cholesterol, Heart Disease, Hypertension, Renal Disease, Renal Failure, Other Additional Past Medical Histor: ESRD, edema, PVD, cardiac tamponade, INSOMNIA Past Surgical History: Appendectomy, Pacemaker Additional Past Surgical Histo: right kidney removed; vasectomy Alcohol Use: None Drug Use: None Adult General Chief Complaint Chief Complaint: CHEST PAIN HPI HPI Patient is a 86 year old gentleman with a history significant for CAD, CHF, ischemic cardiomyopathy, atrial fibrillation, status post pacemaker, prostate cancer, status post nephrectomy, presents to the ER today secondary to midsternal chest pain. Patient reports the pain has been there for approximately 1-2 days now but this evening at approximately 2 in the morning he reports the pain started getting worse. Patient describes the pain as midepigastric in area as well as his left side of his chest. Patient describes the pain as a squeezing sensation. Patient reports some mild shortness of breath with it no diaphoresis no pain radiating to his arms. Patient does not recall having had a stress test or cardiac catheter anytime recently. Patient denies any exacerbating or relieving factors. Review of systems: Constitutional: Denies fever or chills Eyes: Denies change in visual acuity, redness, or eye pain HENT: Denies nasal congestion or sore throat All other systems were reviewed and found to be within normal limits, except as documented in this note. Physical exam: Constitutional: Well developed, well nourished, no acute distress, non-toxic appearance. HENT: Normocephalic, atraumatic, bilateral external ears normal Eyes: PERRLA, EOMI, conjunctiva normal, no discharge. Neck: Normal range of motion, no tenderness, supple, no stridor. Cardiovascular:Heart rate regular rhythm, symmetric are noted left anterior chest wall. Lungs & Thorax: Bilateral breath sounds clear to auscultation Abdomen: Bowel sounds normal, soft, no tenderness, no masses, no pulsatile masses. Skin: Warm, dry, no erythema, no rash. Back: No tenderness, no CVA tenderness. Extremities: No tenderness, no cyanosis, no clubbing, ROM intact, no edema. Left upper extremity dialysis shunt with a good bruit and a good thrill. Neurologic: Alert and oriented X 3, normal motor function, normal sensory function, no focal deficits noted. Psychologic: Affect normal, judgement normal, mood normal. Assessment and plan: AP chest x-ray reveals normal heart no infiltrates or effusions. EKG reveals normal sinus rhythm at a heart rate of 75 with occasional PVC. No evidence of ST elevation NH. 86-year-old gentleman with a history significant for end-stage renal disease, CHF, CAD, ischemic cardiac myopathy who presents to the ER today secondary to midsternal chest pain. Patient's troponin is slightly elevated however the patient does have end-stage renal disease. Patient's EKG does not show any acute ischemic abnormalities. Given the patient's significant cardiac risk factors and his chest pain and elevated troponin patient will be admitted to the hospital for further evaluation and management for his chest pain. Current Medications Current Medications Current Medications Medications (Trade) Dose Ordered Sig/Jin Start Time Stop Time Status Last Admin Dose Admin Nitroglycerin (Nitro-Bid Oint) 1 inch 1X ONCE 12/27/16 03:00 12/27/16 03:01 DC 12/27/16 02:56 1 INCH Allergies Allergies Allergies Coded Allergies Type Severity Reaction Last Updated Verified No Known Medication Allergies Allergy Unknown 11/14/16 Yes Current Patient Data Vital Signs Vital Signs Date Time Temp Pulse Resp B/P (MAP) Pulse Ox O2 Delivery O2 Flow Rate FiO2 12/27/16 03:09 74 18 147/72 (97) 98 Room Air 12/27/16 02:25 99.7 99.7 Lab Values Laboratory Tests Test 12/27/16 02:56 White Blood Count 11.5 x10^3/uL (4.0-11.0) H Red Blood Count 3.38 x10^6/uL (4.30-5.70) L Hemoglobin 11.3 g/dL (13.0-17.5) L Hematocrit 34.8 % (39.0-53.0) L Mean Corpuscular Volume 103 fL (79-100) H Mean Corpuscular Hemoglobin 33 pg (25-35) Mean Corpuscular Hemoglobin Concent 32 g/dL (31-37) Red Cell Distribution Width 16.3 % (11.5-14.5) H Platelet Count 162 x10^3/uL (140-400) Neutrophils (%) (Auto) 89 % (31-73) H Lymphocytes (%) (Auto) 4 % (24-48) L Monocytes (%) (Auto) 6 % (0-9) Eosinophils (%) (Auto) 0 % (0-3) Basophils (%) (Auto) 1 % (0-3) Neutrophils # (Auto) 10.3 x10^3uL (1.8-7.7) H Lymphocytes # (Auto) 0.5 x10^3/uL (1.0-4.8) L Monocytes # (Auto) 0.7 x10^3/uL (0.0-1.1) Eosinophils # (Auto) 0.0 x10^3/uL (0.0-0.7) Basophils # (Auto) 0.1 x10^3/uL (0.0-0.2) Segmented Neutrophils % 94 % (35-66) H Lymphocytes % 2 % (24-48) L Monocytes % 4 % (0-10) Platelet Estimate Adequate (ADEQUATE) Sodium Level 143 mmol/L (136-145) Potassium Level 3.3 mmol/L (3.5-5.1) L Chloride Level 104 mmol/L (98-107) Carbon Dioxide Level 21 mmol/L (21-32) Anion Gap 18 (6-14) H Blood Urea Nitrogen 47 mg/dL (8-26) H Creatinine 7.0 mg/dL (0.7-1.3) H Estimated GFR (Cockcroft-Gault) 9.0 BUN/Creatinine Ratio 7 (6-20) Glucose Level 87 mg/dL (70-99) Calcium Level 8.9 mg/dL (8.5-10.1) Total Bilirubin 0.6 mg/dL (0.2-1.0) Aspartate Amino Transferase (AST) 27 U/L (15-37) Alanine Aminotransferase (ALT) 29 U/L (16-63) Alkaline Phosphatase 74 U/L (46-116) Troponin I Quantitative 0.063 ng/mL (0.000-0.055) Total Protein 5.8 g/dL (6.4-8.2) L Albumin 2.4 g/dL (3.4-5.0) L Albumin/Globulin Ratio 0.7 (1.0-1.7) L Laboratory Tests 12/27/16 02:56 Laboratory Tests 12/27/16 02:56 EKG EKG [] Radiology/Procedures Radiology/Procedures [] Course & Med Decision Making Course & Med Decision Making Pertinent Labs and Imaging studies reviewed. (See chart for details) [] Dragon Disclaimer Dragon Disclaimer This electronic medical record was generated, in whole or in part, using a voice recognition dictation system. Departure Departure Impression: Primary Impression: Chest pain Additional Impressions: Unstable angina End stage renal failure on dialysis Disposition: ADMITTED INPATIENT Admitting Physician: Suraj Figueroa Condition: IMPROVED Referrals: SURAJ FIGUEROA MD (PCP) Problem Qualifiers PAULINE DECKER MD Dec 27, 2016 04:20
[2016-12-27] MEDS ORDERED: ONDANSETRON PF 4 MG/2 ML VIAL. IV PRN (04:30)
[2016-12-27] MEDS ORDERED: NITROGLYCERIN SUBLINGUAL 0.4 MG BOTTLE OF 25. SL PRN (04:30)
[2016-12-27] MEDS ORDERED: ACETAMINOPHEN 325 MG TABLET. PO PRN ×2 (04:30→08:15)
[2016-12-27] MEDS ORDERED: ASPIRIN CHEWABLE 81 MG TABLET. PO ONE (05:30)
[2016-12-27 05:35] VITALS: BP 148/71
--- NOTE | 2016-12-27 07:15 | RAD ---
Portable chest, 12/27/2016: History: Chest pain Comparison is made to a study from 11/13/2016. A left-sided transvenous pacemaker remains in place with 2 leads extending in the right heart. The left ventricle is enlarged. There is calcific plaquing of the aorta. The pulmonary vascularity is normal. There is mild left basilar atelectasis/infiltrate obscuring the hemidiaphragm. There is minimal linear scarring or atelectasis in the right parahilar region. A small amount of left-sided pleural fluid cannot be excluded. IMPRESSION: 1. Left ventricular enlargement and aortic atherosclerosis. 2. Mild left basilar atelectasis/infiltrate.
[2016-12-27 07:34] VITALS: BP 136/61
--- NOTE | 2016-12-27 07:55 | PDOC1 ---
[facility] [facility] SUPERVISOR 12/27/16 0755: HISTORY AND PHYSICAL Chief Complaint Chief Complaint This 86 year old male has been admitted with a chief complaint of chest pain. He reports onset of food sticking in throat 4-5 days ago. He finally was able to swallow it and since that time has noted increase in reflux symptoms and epigastric tenderness. He denies chest pain. He reports he awoke this morning with reflux symptoms and epigastric tenderness. The staff at the facility reports he did c/o chest pain. He was transported to the ED for evaluation. Labs: WBC 11.5, T99.7F, Troponin 0.063 and EKG no acute changes. CXR suggestive of infiltrate/atelectasis L base. Food sticking in his throat has reoccurred several times. ASA 324mg po was given in ED and he is admitted to [facility]. . Problem List Problems Medical Problems: (1) Chest pain Status: Acute (2) End stage renal failure on dialysis Status: Acute (3) Unstable angina Status: Acute Past Medical History Cardiovascular: AFIB (not anticoagulant candidate ), CAD, CHF, HTN, AK, Hyperlipidemia, Pulmonary hypertension, Other (h/o pericardial effusion, h/o tamponade with anticoagulation, PVD ) Pulmonary: Pneumonia CENTRAL NERVOUS SYSTEM: Periperal neuropathy GI: GERD Heme/Onc: Anemia NOS, B12 deficiency (Fe ESRD ) Psych: Anxiety, Depression Musculoskeletal: Weakness Renal/: Chronic renal failure (ESRD AV fistula LUE ), Prostate Ca. Endocrine: Hyperparathyroidism Past Surgical History PSH Stent LAD 03/2010; prostatectomy; appendectomy; R nephrectomy Past Surgical History: Pacemaker (ACID 03/2010), Appendectomy Past Family History Family History: Heart Disease Past Social History PSH , supportive , resides at [facility] h/o tobacco, negative ETOH or illicit drug use. Review of Symptoms Review of Symptoms A 14 point ROS was completed with the following noted as positive: per HPI Other systems reviewed and negative. Medications Medications reviewed and reconciled. Allergy Allergies Coded Allergies Type Severity Reaction Last Updated Verified No Known Medication Allergies Allergy Unknown 11/14/16 Yes Physical Exam Physical Exam General appearance - alert,well appearing, and in no distress Mental Status - alert, oriented to person, place, and time, affect appropriate to mood Head - normal Chest - clear to auscultation, no wheezes, rales or rhonchi Heart - S1 and S2 normal Abdomen - soft, nondistended, + tender epigastric, BS + Neurological - no acute focal neurological deficit noted Musculoskeletal - no muscular tenderness noted Extremities - no pedal edema Skin - warm and dry VTE Prophylaxis Ordered VTE Prophylaxis Devices: Yes VTE Pharmacological Prophylaxi: No Assessment Labs Laboratory Tests Test 12/27/16 02:56 White Blood Count 11.5 x10^3/uL (4.0-11.0) Red Blood Count 3.38 x10^6/uL (4.30-5.70) Hemoglobin 11.3 g/dL (13.0-17.5) Hematocrit 34.8 % (39.0-53.0) Mean Corpuscular Volume 103 fL (79-100) Mean Corpuscular Hemoglobin 33 pg (25-35) Mean Corpuscular Hemoglobin Concent 32 g/dL (31-37) Red Cell Distribution Width 16.3 % (11.5-14.5) Platelet Count 162 x10^3/uL (140-400) Neutrophils (%) (Auto) 89 % (31-73) Lymphocytes (%) (Auto) 4 % (24-48) Monocytes (%) (Auto) 6 % (0-9) Eosinophils (%) (Auto) 0 % (0-3) Basophils (%) (Auto) 1 % (0-3) Neutrophils # (Auto) 10.3 x10^3uL (1.8-7.7) Lymphocytes # (Auto) 0.5 x10^3/uL (1.0-4.8) Monocytes # (Auto) 0.7 x10^3/uL (0.0-1.1) Eosinophils # (Auto) 0.0 x10^3/uL (0.0-0.7) Basophils # (Auto) 0.1 x10^3/uL (0.0-0.2) Segmented Neutrophils % 94 % (35-66) Lymphocytes % 2 % (24-48) Monocytes % 4 % (0-10) Platelet Estimate Adequate (ADEQUATE) Sodium Level 143 mmol/L (136-145) Potassium Level 3.3 mmol/L (3.5-5.1) Chloride Level 104 mmol/L (98-107) Carbon Dioxide Level 21 mmol/L (21-32) Anion Gap 18 (6-14) Blood Urea Nitrogen 47 mg/dL (8-26) Creatinine 7.0 mg/dL (0.7-1.3) Estimated GFR (Cockcroft-Gault) 9.0 BUN/Creatinine Ratio 7 (6-20) Glucose Level 87 mg/dL (70-99) Calcium Level 8.9 mg/dL (8.5-10.1) Total Bilirubin 0.6 mg/dL (0.2-1.0) Aspartate Amino Transf (AST/SGOT) 27 U/L (15-37) Alanine Aminotransferase (ALT/SGPT) 29 U/L (16-63) Alkaline Phosphatase 74 U/L (46-116) Troponin I Quantitative 0.063 ng/mL (0.000-0.055) Total Protein 5.8 g/dL (6.4-8.2) Albumin 2.4 g/dL (3.4-5.0) Albumin/Globulin Ratio 0.7 (1.0-1.7) Laboratory Tests Test 12/27/16 02:56 White Blood Count 11.5 x10^3/uL (4.0-11.0) Red Blood Count 3.38 x10^6/uL (4.30-5.70) Hemoglobin 11.3 g/dL (13.0-17.5) Hematocrit 34.8 % (39.0-53.0) Mean Corpuscular Volume 103 fL (79-100) Mean Corpuscular Hemoglobin 33 pg (25-35) Mean Corpuscular Hemoglobin Concent 32 g/dL (31-37) Red Cell Distribution Width 16.3 % (11.5-14.5) Platelet Count 162 x10^3/uL (140-400) Neutrophils (%) (Auto) 89 % (31-73) Lymphocytes (%) (Auto) 4 % (24-48) Monocytes (%) (Auto) 6 % (0-9) Eosinophils (%) (Auto) 0 % (0-3) Basophils (%) (Auto) 1 % (0-3) Neutrophils # (Auto) 10.3 x10^3uL (1.8-7.7) Lymphocytes # (Auto) 0.5 x10^3/uL (1.0-4.8) Monocytes # (Auto) 0.7 x10^3/uL (0.0-1.1) Eosinophils # (Auto) 0.0 x10^3/uL (0.0-0.7) Basophils # (Auto) 0.1 x10^3/uL (0.0-0.2) Segmented Neutrophils % 94 % (35-66) Lymphocytes % 2 % (24-48) Monocytes % 4 % (0-10) Platelet Estimate Adequate (ADEQUATE) Sodium Level 143 mmol/L (136-145) Potassium Level 3.3 mmol/L (3.5-5.1) Chloride Level 104 mmol/L (98-107) Carbon Dioxide Level 21 mmol/L (21-32) Anion Gap 18 (6-14) Blood Urea Nitrogen 47 mg/dL (8-26) Creatinine 7.0 mg/dL (0.7-1.3) Estimated GFR (Cockcroft-Gault) 9.0 BUN/Creatinine Ratio 7 (6-20) Glucose Level 87 mg/dL (70-99) Calcium Level 8.9 mg/dL (8.5-10.1) Total Bilirubin 0.6 mg/dL (0.2-1.0) Aspartate Amino Transf (AST/SGOT) 27 U/L (15-37) Alanine Aminotransferase (ALT/SGPT) 29 U/L (16-63) Alkaline Phosphatase 74 U/L (46-116) Troponin I Quantitative 0.063 ng/mL (0.000-0.055) Total Protein 5.8 g/dL (6.4-8.2) Albumin 2.4 g/dL (3.4-5.0) Albumin/Globulin Ratio 0.7 (1.0-1.7) Plan Plan IMPRESSION: 1. epigastric pain 2. dysphagia with sensation food sticking in throat 3. abnormal CXR suggestive of aspiration pneumonia no sepsis 4. abnormal troponin 5. GERD with reflux symptoms 6. chronic CHF systolic EF 25% diastolic no acute 7. hypokalemia 8. ischemic CM with AICD 9. anemia ESRD/Fe 10. CAD with h/o AK, PCI LAD 11. moderate weakness and debility chronic 12. moderate PCL malnutrition chronic 13. HTN 14. hyperlipidemia 15. ESRD hemodialysis MWF 16. h/o prostate Ca with prostatectomy 17. h/o AFib not coumadin candidate 18. pulmonary HTN 19. peripheral neuropathy 20. anxiety 21. depression 22. coccyx and L buttock wounds POA PLAN: aspiration pneumonia - WBC 11.5 Temp 99.7F nebulizer treatment - mucinex - Rocephin IV Zithromax IV - consult pulmonary - CT chest pending - no sepsis abnormal troponin/atypical chest pain - cardiology consult epigastric pain/gerd with symptoms/dysphagia - consult GI - PPI ESRD - hypokalemia K3.3 - renal consulted - continue dialysis in patient ICM/CHF - stable CAD with h/o AK and PCI stent LAD - continue home meds AFib - not anticoagulant candidate - on amiodarone wounds - wound care consult - see pics in hard chart For more details regarding further plans, please refer to the orders. SURAJ FIGUEROA MD 12/27/16 0958: HISTORY AND PHYSICAL Plan Plan Patient denies choking sensation or dysphagia on a daily basis.He had problems with food sticking in the lower chest several days ago. The patient was seen and examined by me. Chart reviewed and plan of care formulated. Discussed with, reviewed and agree with CASH MANAGEMENT SPECIALIST's notes, plan of care and orders with modifications as necessary. For more details regarding further plans, please refer to the orders. IVANA VILLA APRN Dec 27, 2016 07:55 SURAJ FIGUEROA MD Dec 27, 2016 09:58
[2016-12-27] MEDS ORDERED: IOHEXOL 300 MG/ML 100ML VIAL. IV ONE (08:30)
[2016-12-27] MEDS ORDERED: CONTRAST GIVEN MC PRN (08:30)
[2016-12-27] MEDS ORDERED: IOHEXOL 240 MG/ML 50ML VIAL. PO ONE (08:30)
[2016-12-27] MEDS: DOCUSATE SODIUM 100 MG CAPSULE. PO SCH ×2 (09:00→20:53)
[2016-12-27] MEDS: POLYETHYLENE GLYCOL 3350 17 GM PACKET. PO SCH ×3 (09:00→20:53)
[2016-12-27] MEDS: IPRATRPIUM/ALBUTEROL 0.5/2.5MG 3 ML NEBU. NEB SCH ×4 (09:00→19:22)
[2016-12-27 09:22] LABS: CHOLESTEROL/HDL RATIO 1.4
--- NOTE | 2016-12-27 09:37 | PDOC2 ---
[employer] [facility] WORK[employer] COMPENSATION CLAIMS EXAMINER 12/27/16 0937: CARDIAC CONSULT DATE OF CONSULT Date of Consult DATE: 12/27/16 TIME: 09:26 REASON FOR CONSULT Reason for Consult: Chest pain Elevated troponin CHF REFERRING PHYSICIAN Referring Physician: Dr. Smiley SOURCE Source: Chart review, Patient HISTORY OF PRESENT ILLNESS HISTORY OF PRESENT ILLNESS This is an 86 yo male who presented with complaints of chest pain. Located in the epigastric region. Patient reports food getting caught approximately 4-5 days ago. Eventually passes spontaneously. Since then, has had feeling of "indigestion" that has progressively worsened. Exacerbated by eating. Denies any palpitations, dizziness, diaphoresis, SOA, or nausea/vomiting. Has had some diarrhea recently. Does have extensive cardiac history including CAD, CHF, ICM s /p AICD, HTN, HLP, and PAFIB. PAST MEDICAL HISTORY Cardiovascular: AFIB (payoxysmal ), CAD, CHF, HTN, MT, Hyperlipidemia, Other ( ICM s/p Medtronic AICD, pericardial effusion) Pulmonary: Other (pulmonary hypertension) GI: GERD Heme/Onc: No pertinent hx Hepatobiliary: No pertinent hx Psych: Anxiety Musculoskeletal: Osteoarthritis Rheumatologic: No pertinent hx Infectious disease: No pertinent hx ENT: No pertinent hx Renal/: Chronic renal failure (on HD), Prostate Ca., Renal Ca. Endocrine: No pertinent hx Dermatology: No pertinent hx PAST SURGICAL HISTORY Past Surgical History: Pacemaker (AICD (Medtronic)), Appendectomy, Cholecystectomy, Other (left nephrectomy prostatectomy ) FAMILY HISTORY Family History: Heart Disease SOCIAL HISTORY Smoke: No ALCOHOL: none Drugs: None Lives: Snf CURRENT MEDICATIONS CURRENT MEDICATIONS Current Medications Medications (Trade) Dose Ordered Sig/Jin Route PRN Reason Start Time Stop Time Status Last Admin Dose Admin Nitroglycerin (Nitro-Bid Oint) 1 inch 1X ONCE TP 12/27/16 03:00 12/27/16 03:01 DC 12/27/16 02:56 Aspirin (Children'S Aspirin) 324 mg 1X ONCE PO 12/27/16 05:30 12/27/16 05:31 DC 12/27/16 05:18 ALLERGIES ALLERGIES: Coded Allergies: No Known Medication Allergies (Verified Allergy, Unknown, 11/14/16) ROS Review of System 14 point ROS conducted with pertinent positives noted above in HPI. PHYSICAL EXAM General: Alert, Oriented X3, Cooperative, No acute distress HEENT: Atraumatic, Mucous membr. moist/pink Lungs: Normal air movement, Other (left basilar crackles) Heart: Regular rate, Normal S1, Normal S2, Other (2/6 systolic murmur ) Abdomen: Soft, No tenderness Extremities: No edema, Normal pulses, Other Skin: No breakdown, No significant lesion Neuro: Normal speech, Sensation intact Psych/Mental Status: Mental status NL, Mood NL MUSCULOSKELETAL: Osteoarthritic changes both hands VITALS VITALS Vital Signs Date Time Temp Pulse Resp B/P (MAP) Pulse Ox O2 Delivery O2 Flow Rate FiO2 12/27/16 07:34 97.6 71 18 136/61 (86) 100 Room Air 97.6 LABS Lab: Laboratory Tests Test 12/27/16 02:56 White Blood Count 11.5 x10^3/uL (4.0-11.0) Red Blood Count 3.38 x10^6/uL (4.30-5.70) Hemoglobin 11.3 g/dL (13.0-17.5) Hematocrit 34.8 % (39.0-53.0) Mean Corpuscular Volume 103 fL (79-100) Mean Corpuscular Hemoglobin 33 pg (25-35) Mean Corpuscular Hemoglobin Concent 32 g/dL (31-37) Red Cell Distribution Width 16.3 % (11.5-14.5) Platelet Count 162 x10^3/uL (140-400) Neutrophils (%) (Auto) 89 % (31-73) Lymphocytes (%) (Auto) 4 % (24-48) Monocytes (%) (Auto) 6 % (0-9) Eosinophils (%) (Auto) 0 % (0-3) Basophils (%) (Auto) 1 % (0-3) Neutrophils # (Auto) 10.3 x10^3uL (1.8-7.7) Lymphocytes # (Auto) 0.5 x10^3/uL (1.0-4.8) Monocytes # (Auto) 0.7 x10^3/uL (0.0-1.1) Eosinophils # (Auto) 0.0 x10^3/uL (0.0-0.7) Basophils # (Auto) 0.1 x10^3/uL (0.0-0.2) Segmented Neutrophils % 94 % (35-66) Lymphocytes % 2 % (24-48) Monocytes % 4 % (0-10) Platelet Estimate Adequate (ADEQUATE) Sodium Level 143 mmol/L (136-145) Potassium Level 3.3 mmol/L (3.5-5.1) Chloride Level 104 mmol/L (98-107) Carbon Dioxide Level 21 mmol/L (21-32) Anion Gap 18 (6-14) Blood Urea Nitrogen 47 mg/dL (8-26) Creatinine 7.0 mg/dL (0.7-1.3) Estimated GFR (Cockcroft-Gault) 9.0 BUN/Creatinine Ratio 7 (6-20) Glucose Level 87 mg/dL (70-99) Calcium Level 8.9 mg/dL (8.5-10.1) Total Bilirubin 0.6 mg/dL (0.2-1.0) Aspartate Amino Transf (AST/SGOT) 27 U/L (15-37) Alanine Aminotransferase (ALT/SGPT) 29 U/L (16-63) Alkaline Phosphatase 74 U/L (46-116) Troponin I Quantitative 0.063 ng/mL (0.000-0.055) Total Protein 5.8 g/dL (6.4-8.2) Albumin 2.4 g/dL (3.4-5.0) Albumin/Globulin Ratio 0.7 (1.0-1.7) Triglycerides Level 34 mg/dL (0-150) Cholesterol Level 161 mg/dL (0-200) LDL Cholesterol, Calculated 36 mg/dL (0-100) VLDL Cholesterol, Calculated 7 mg/dL (0-40) Non-HDL Cholesterol Calculated 43 mg/dL (0-129) HDL Cholesterol 118 mg/dL (40-60) Cholesterol/HDL Ratio 1.4 ECHOCARDIOGRAM ECHOCARDIOGRAM <Conclusion> Severe left ventricular systolic dysfunction with ejection fraction estimated at 25%. Transmitral Doppler flow pattern is Grade I-abnormal relaxation pattern. The left atrium is mildly dilated. A pacemaker is seen in the right atrium and right ventricle consistent with history. Mild mitral regurgitation. Mild tricuspid regurgitation. There is moderate pulmonary hypertension. The PA pressure was estimated at 41 mmHg. There is no evidence of significant pericardial effusion. DICTATED and SIGNED BY: GALILEO POWELL MD DATE: 02/01/16 7433 ASSESSMENT/PLAN ASSESSMENT/PLAN 1. Chest/ epigastric pain; atypical. initial trop 0.063- likely type II demand ischemia. Pain most probably GI/GERD related 2. Chronic systolic HF with ISM s/p AICD; LVEF 25% (01/27). clinically well- compensated 3. CAD s/p PCI/stent placement. Appears stable. 4. Hypertension; mildly elevated 5. Hyperlipidemia; LDL 36 6. PAFIB; maintaining SR 7. GERD; PPI. further workup as per GI 8. History of ventricular thrombus; CT chest d/w primary business continuity consultant. Echo reviewed- thrombus appears chronic in nature. No acute indication for anticoagulation therapy. 9. ESRD on HD 10. Hypokalemia; replaced. Recommendations Trend troponin Check echo to assess LV function/ presence of new WMA Interrogate device Amiodarone for rhythm maintenance On ASA for stroke prevention Resume secondary prevention measures. consider low-dose BB Fluid offloading/management via HD as per nephrology Supportive care Further recommendations pending diagnostics Problems: GALILEO POWELL MD 12/28/16 0846: CARDIAC CONSULT ALLERGIES ALLERGIES: Coded Allergies: No Known Medication Allergies (Verified Allergy, Unknown, 11/14/16) ASSESSMENT/PLAN ASSESSMENT/PLAN Patient seen and examined 12/27/16 (late entry). Agree with COMMERCIAL FINANCE MANAGER's assessment and plan. Chest pain with atypical features. Slight troponin level elevation secondary to demand ischemia. LVEF 25% on 2-D echocardiogram. 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 Chronic systolic heart failure well compensated. CAD status post clinically stable. Continue current medications and continue hemodialysis per nephrology team. Thank you for your consultation. Problems: MERCEDES GOMEZ APRN Dec 27, 2016 09:37 GALILEO POWELL MD Dec 28, 2016 08:46
[2016-12-27] MEDS: traMADol 50 MG TABLET PO SCH ×2 (09:45→20:53)
[2016-12-27] MEDS: cefTRIAXone IV Push 1 GM VIAL. IVP SCH (09:47)
--- NOTE | 2016-12-27 10:00 | RAD ---
CT chest without contrast 12/27/2016 Clinical indication: Abnormal chest x-ray, basilar infiltrate versus atelectasis. Comparison: CT chest 05/26/2014 Technique: Multiple CT images of the chest were obtained without contrast according to standard protocol. PQRS Compliance Statement: One or more of the following individualized dose reduction techniques were utilized for this examination: 1. Automated exposure control 2. Adjustment of the mA and/or kV according to patient size 3. Use of iterative reconstruction technique Findings: Chest: There is mild generalized cardiomegaly without significant pericardial effusion. There is diffuse thinning of the left ventricular apex with focal outpouching and a wide neck Left chest wall cardiac connection device with transvenous right ventricular and right atrial pacer leads. There are bilateral hypodense thyroid nodules, the largest on the right measuring 2.4 cm. No axillary, mediastinal or obvious hilar lymphadenopathy, though evaluation is limited in the absence of intravenous contrast.. The central airways are patent. There is a trace left pleural effusion with patchy mild left lower lobe consolidation. There is mild by basilar linear scarring or atelectasis. There is a 0.5 cm groundglass nodule in the right upper lobe series 2/image 16. There are no destructive osseous lesions. Limited images of the upper abdomen: Right kidney is absent. There are a few scattered hepatic hypodensities with development of a hepatic segment 5 hypodensity measuring 1.4 cm series 2/image 59. Impression: 1. Trace left pleural effusion with mild adjacent patchy consolidation which may represent chronic scarring or pneumonia. 2. Small, 0.5 cm, right upper lobe groundglass nodule, indeterminate. Follow-up CT chest in 3 months is recommended to assess for stability. 3. Hepatic hypodensities, one of which has developed since prior examination measuring 1.4 cm and is incomplete to characterize, indeterminate. Follow-up MRI abdomen without with contrast is recommended for further characterization. 4. 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 Underlying thrombus cannot be excluded. Clinical correlation is recommended. If further imaging evaluation is clinically indicated, cardiac MR or CT with contrast could be obtained. 5. Bilateral thyroid nodules, right measuring 2.4 cm. Nonemergent follow-up thyroid ultrasound is recommended if not already performed.
[2016-12-27 10:19] VITALS: BP 138/67
--- NOTE | 2016-12-27 10:45 | EKG ---
[facility] [address] [place] [address] Test Date: 2016-12-27 Test Time: 02:35:37 Pat Name: ELI SALAZAR Department: Room: 248 1 Gender: M Field Seismologist: : [id number] Requested By: PAULINE DECKER Order Number: [id number] Reading MD: Jaleel Fonseca Measurements Intervals Burns Rate: 76 P: -128 AL: 200 QRS: -89 QRSD: 148 T: 87 QT: 456 QTc: 518 Interpretive Statements SINUS RHYTHM VENTRICULAR PREMATURE COMPLEX(ES) ABNORMAL LEFT AXIS DEVIATION LEFT ANTERIOR FASCICULAR BLOCK NON SPECIFIC INTRAVENTRICULAR BLOCK QRS(T) CONTOUR ABNORMALITY CONSISTENT WITH ANTEROSEPTAL INFARCT AGE UNDETERMINED ABNORMAL ECG RI6.01 Electronically Signed On 12-27-2016 16:04:15 NEONATAL INTENSIVE CARE NURSE by Jaleel Fonseca
--- NOTE | 2016-12-27 10:45 | PDOC2 ---
GI CONSULT Reason For Consult: Dysphagia, food sticks in throat, epigastric pain HPI: HPI: 86 y/o male admitted w/ chest pain. Also reports recently (maybe 1 week ago), food (not sure what he was eating) got caught in the upper chest for awhile, passed the same day. Since then, regardless of eating, has an "indigestion" feeling rising up in his chest. Denies dysphagia and odynophagia. Acknowledges h/o GERD, not really sure what he takes (summary list shows pantoprazole and ranitidine - on BID PPI here). Denies abd pain to me. Has been having loose stools, not necessarily abnormal for him (note on Miralax and Senna). Can document previous colonoscopy by Dr. Silva in 2005 w/ left-sided diverticulosis and internal hemorrhoids. He doesn't recall previous EGD. No gallbladder, liver, or pancreas history. Denies n/v, hematochezia, melena. PMH: PMH: A Fib, CAD s/p stent, CHF, HTN, HI, HLD, pulmonary hypertension, PVD, pericardial effusion, pneumonia, peripheral neuropathy, GERD, anemia, B12 deficiency, diverticulosis, hemorrhoids, anxiety/depression, ESRD on HD, prostate and renal cancer, hyperparathyroidism, prostatectomy, appendectomy, right nephrectomy, AICD, vasectomy, left inguinal hernia repair, vertigo FH: Family History: No pertinent hx Social History: Smoke: Quit ALCOHOL: none Drugs: None ROS: GEN: Denies fevers, chills, sweats HEENT: Denies blurred vision, sore throat CV: +chest pain RESP: Denies shortness of air, cough GI: Per HPI : Denies hematuria, dysuria ENDO: Denies weight changes NEURO: Denies confusion, dizziness MSK: Denies weakness, joint pain/swelling SKIN: Denies jaundice, pruritus Vitals: Vitals: Vital Signs Date Time Temp Pulse Resp B/P (MAP) Pulse Ox O2 Delivery O2 Flow Rate FiO2 12/27/16 10:19 97.9 70 19 138/67 (90) Room Air 97.9 12/27/16 07:34 100 Labs: Labs: Laboratory Tests Test 12/27/16 02:56 White Blood Count 11.5 x10^3/uL (4.0-11.0) Red Blood Count 3.38 x10^6/uL (4.30-5.70) Hemoglobin 11.3 g/dL (13.0-17.5) Hematocrit 34.8 % (39.0-53.0) Mean Corpuscular Volume 103 fL (79-100) Mean Corpuscular Hemoglobin 33 pg (25-35) Mean Corpuscular Hemoglobin Concent 32 g/dL (31-37) Red Cell Distribution Width 16.3 % (11.5-14.5) Platelet Count 162 x10^3/uL (140-400) Neutrophils (%) (Auto) 89 % (31-73) Lymphocytes (%) (Auto) 4 % (24-48) Monocytes (%) (Auto) 6 % (0-9) Eosinophils (%) (Auto) 0 % (0-3) Basophils (%) (Auto) 1 % (0-3) Neutrophils # (Auto) 10.3 x10^3uL (1.8-7.7) Lymphocytes # (Auto) 0.5 x10^3/uL (1.0-4.8) Monocytes # (Auto) 0.7 x10^3/uL (0.0-1.1) Eosinophils # (Auto) 0.0 x10^3/uL (0.0-0.7) Basophils # (Auto) 0.1 x10^3/uL (0.0-0.2) Segmented Neutrophils % 94 % (35-66) Lymphocytes % 2 % (24-48) Monocytes % 4 % (0-10) Platelet Estimate Adequate (ADEQUATE) Sodium Level 143 mmol/L (136-145) Potassium Level 3.3 mmol/L (3.5-5.1) Chloride Level 104 mmol/L (98-107) Carbon Dioxide Level 21 mmol/L (21-32) Anion Gap 18 (6-14) Blood Urea Nitrogen 47 mg/dL (8-26) Creatinine 7.0 mg/dL (0.7-1.3) Estimated GFR (Cockcroft-Gault) 9.0 BUN/Creatinine Ratio 7 (6-20) Glucose Level 87 mg/dL (70-99) Calcium Level 8.9 mg/dL (8.5-10.1) Total Bilirubin 0.6 mg/dL (0.2-1.0) Aspartate Amino Transf (AST/SGOT) 27 U/L (15-37) Alanine Aminotransferase (ALT/SGPT) 29 U/L (16-63) Alkaline Phosphatase 74 U/L (46-116) Troponin I Quantitative 0.063 ng/mL (0.000-0.055) Total Protein 5.8 g/dL (6.4-8.2) Albumin 2.4 g/dL (3.4-5.0) Albumin/Globulin Ratio 0.7 (1.0-1.7) Triglycerides Level 34 mg/dL (0-150) Cholesterol Level 161 mg/dL (0-200) LDL Cholesterol, Calculated 36 mg/dL (0-100) VLDL Cholesterol, Calculated 7 mg/dL (0-40) Non-HDL Cholesterol Calculated 43 mg/dL (0-129) HDL Cholesterol 118 mg/dL (40-60) Cholesterol/HDL Ratio 1.4 Allergies: Coded Allergies: No Known Medication Allergies (Verified Allergy, Unknown, 11/14/16) Medications: Current Medications Medications (Trade) Dose Ordered Sig/Jin Route PRN Reason Start Time Stop Time Status Last Admin Dose Admin Nitroglycerin (Nitro-Bid Oint) 1 inch 1X ONCE TP 12/27/16 03:00 12/27/16 03:01 DC 12/27/16 02:56 Aspirin (Children'S Aspirin) 324 mg 1X ONCE PO 12/27/16 05:30 12/27/16 05:31 DC 12/27/16 05:18 Tramadol HCl (Ultram) 50 mg BID PO 12/27/16 09:00 12/27/16 09:45 Ceftriaxone Sodium (Rocephin) 1 gm Q24H IVP 12/27/16 09:00 12/27/16 09:47 Imaging: Imaging: CXR IMPRESSION: 1. Left ventricular enlargement and aortic atherosclerosis. 2. Mild left basilar atelectasis/infiltrate. Chest CT Impression: 1. Trace left pleural effusion with mild adjacent patchy consolidation which may represent chronic scarring or pneumonia. 2. Small, 0.5 cm, right upper lobe groundglass nodule, indeterminate. Follow-up CT chest in 3 months is recommended to assess for stability. 3. Hepatic hypodensities, one of which has developed since prior examination measuring 1.4 cm and is incomplete to characterize, indeterminate. Follow-up MRI abdomen without with contrast is recommended for further characterization. 4. 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 Underlying thrombus cannot be excluded. Clinical correlation is recommended. If further imaging evaluation is clinically indicated, cardiac MR or CT with contrast could be obtained. 5. Bilateral thyroid nodules, right measuring 2.4 cm. Nonemergent follow-up thyroid ultrasound is recommended if not already performed. PE: GEN: NAD HEENT: Atraumatic, PERRL LUNGS: CTAB HEART: RRR ABD: NABS, S/ND/NT EXTREMITY: No edema SKIN: No rashes, no jaundice NEURO/PSYCH: A & O 3 A/P: A/P: Chest pain, elevated troponin -h/o CAD, CHF, A Fib ?dysphagia, GERD -recently food stuck in upper chest, passed spontaneously -now has a reflux/regurg feeling (w/ and w/o eating) -has been on acid-reducers, no previous EGD Loose stools, CRC screen -seems not a new symptom -colonoscopy in 2005 w/ diverticulosis and hemorrhoids ESRD on HD -- Agree w/ PPI. Continue per cardiology, etc. ?EGD tomorrow afternoon - will review w/ Dr. Watts. ALEXUS HEAD Dec 27, 2016 10:45
--- NOTE | 2016-12-27 10:51 | PDOC2 ---
CONSULT Date of Consult Date of Consult DATE: 12/27/16 TIME: 10:46 Reason for Consult Reason for Consult: ESRD Referring Physician Referring Physician: HENRY Identification/Chief Complaint Chief Complaint CHEST PAIN Problems: Source Source: Chart review, Patient History of Present Illness Reason for Visit: THIS IS AN 86 YR OLD ADMITTED WITH CHEST PAIN. NO SOB OR RADIATIONAL DISCOMFORT. DOES HAVE SOME DIFFICULTY WITH SWALLOWING AND SOME EPIGASTRIC PAIN WELL. UNDERGOING GI AND CARDIOLOGY EVAL. LABS ARE C/W ESRD. HE HAS OP HD ON MWF AND LAST TX WAS ON SUNDAY Past Medical History Cardiovascular: AFIB (payoxysmal ), CAD, CHF, HTN, [place], Hyperlipidemia, Other ( ICM s/p Medtronic AICD, pericardial effusion) Pulmonary: Other (pulmonary hypertension) CENTRAL NERVOUS SYSTEM: Periperal neuropathy GI: GERD Heme/Onc: Anemia NOS, B12 deficiency (Fe ESRD ) Psych: Anxiety Musculoskeletal: Weakness Renal/: Chronic renal failure (on HD), Prostate Ca., Renal Ca. Endocrine: Hyperparathyroidism Past Surgical History Past Surgical History: Pacemaker (AICD (Medtronic)), Appendectomy, Cholecystectomy, Other (left nephrectomy prostatectomy ) Family History Family History: Heart Disease Social History Quit ALCOHOL: none Drugs: None Lives: Assisted Domestic Violence: Neg Current Problem List Problem List Problems Medical Problems: (1) Chest pain Status: Acute (2) End stage renal failure on dialysis Status: Acute (3) Unstable angina Status: Acute Current Medications Current Medications Current Medications Nitroglycerin (Nitro-Bid Oint) 1 inch 1X ONCE TP Last administered on t 02:56; Start 12/27/16 at 03:00; Stop 12/27/16 at 03:01; Status DC Ondansetron HCl (Zofran) 4 mg PRN Q8HRS PRN IV NAUSEA/VOMITING; Start at 04:30; Stop 12/28/16 at 04:29 Acetaminophen (Tylenol) 650 mg PRN Q4HRS PRN PO FEVER; Start 12/27/16 at 04:30 ; Stop 12/28/16 at 04:29; Status Cancel Nitroglycerin (Nitrostat) 0.4 mg PRN Q5MIN PRN SL CHEST PAIN; Start 12/27/16 at 04:30; Stop 12/28/16 at 04:29 Aspirin (Children'S Aspirin) 324 mg 1X ONCE PO Last administered on t 05:18; Start 12/27/16 at 05:30; Stop 12/27/16 at 05:31; Status DC Acetaminophen (Tylenol) 325 mg PRN Q4HRS PRN PO MILD PAIN / TEMP; Start at 08:15 Acetaminophen (Tylenol) 650 mg BID PO ; Start 12/27/16 at 09:00 Amiodarone HCl (Cordarone) 200 mg DAILY07 PO ; Start 12/27/16 at 08:30 Ascorbic Acid (Vitamin C) 500 mg DAILY PO ; Start 12/27/16 at 09:00 Aspirin (Ecotrin) 81 mg DAILY PO ; Start 12/27/16 at 09:00 Vitamin D (Vitamin D3) 1,000 unit DAILY PO ; Start 12/27/16 at 09:00 Docusate Sodium (Colace) 100 mg BID PO ; Start 12/27/16 at 09:00 Magnesium Oxide (Magnesium Oxide) 400 mg BID PO ; Start 12/27/16 at 09:00 Pantoprazole Sodium (Protonix) 40 mg BIDAC PO ; Start 12/27/16 at 09:00 Polyethylene Glycol (miraLAX PACKET) 17 gm BID PO ; Start 12/27/16 at 09:00 Sennosides (Senna) 8.6 mg BID PO ; Start 12/27/16 at 09:00 Sertraline HCl (Zoloft) 75 mg HS PO ; Start 12/27/16 at 21:00 Simvastatin (Zocor) 20 mg HS PO ; Start 12/27/16 at 21:00 Tramadol HCl (Ultram) 50 mg BID PO Last administered on 12/27/16t 09:45; Start 12/27/16 at 09:00 Vitamin B Complex/ Vitamin C (Lizet-David) 1 tab DAILY PO ; Start 12/27/16 at 09: 00 Albuterol/ Ipratropium (Duoneb) 3 ml RTQID NEB ; Start 12/27/16 at 09:00 Guaifenesin (Mucinex) 600 mg BID PO ; Start 12/27/16 at 09:00 Ceftriaxone Sodium 1 gm/ Dextrose 50 ml @ 100 mls/hr Q24H IV ; Start 12/27/16 at 08:15; Status UNV Azithromycin (Zithromax) 250 mg DAILY PO ; Start 12/27/16 at 09:00 Iohexol (Omnipaque 300 Mg/ml) 75 ml 1X ONCE IV ; Start 12/27/16 at 08:30; Stop 12/27/16 at 08:31; Status DC Iohexol (Omnipaque 240 Mg/ml) 30 ml 1X ONCE PO ; Start 12/27/16 at 08:30; Stop 12/27/16 at 08:31; Status DC Info (Do NOT chart on this entry -- for MONITORING) 1 each PRN DAILY PRN MC SEE COMMENTS; Start 12/27/16 at 08:30; Stop 12/29/16 at 08:29 Ceftriaxone Sodium (Rocephin) 1 gm Q24H IVP Last administered on 12/27/16t 09: 47; Start 12/27/16 at 09:00 Active Scripts Active Tramadol Hcl 50 Mg Tablet 50 Mg PO BID Sertraline Hcl 25 Mg Tablet 75 Mg PO HS Vitamin D (Cholecalciferol (Vitamin D3)) 1,000 Unit Tablet 1,000 Unit PO DAILY Tylenol (Acetaminophen) 325 Mg Tablet 325 Mg PO PRN Q4HRS PRN Reported Senokot (Sennosides) 8.6 Mg Tablet 1 Tab PO BID Ranitidine Hcl 150 Mg Capsule 75 Mg PO BID Melatonin 3 Mg Tablet 6 Mg PO Colace (Docusate Sodium) 100 Mg Capsule 100 Mg PO Aspir 81 (Aspirin) 81 Mg Tablet.dr 1 Tab PO DAILY Protonix (Pantoprazole Sodium) 40 Mg Tablet.dr 40 Mg PO DAILY Ascorbic Acid 500 Mg Tablet 500 Mg PO DAILY Miralax (Polyethylene Glycol 3350) 17 Gm Powd.pack 1 Packet PO DAILY Nephro-David Rx Tablet (Vit B Cmplx 3/Fa/Vit C/Biotin) 1 Each Tablet 1 Each PO DAILY Simvastatin 20 Mg Tablet 20 Mg PO HS Magnesium Oxide 400 Mg Tablet 400 Mg PO BID Amiodarone Hcl 200 Mg Tablet 200 Mg PO DAILY07 Tylenol (Acetaminophen) 325 Mg Tablet 650 Mg PO BID NITROGLYCERIN SubLingual (Nitroglycerin) 0.4 Mg Tab.subl 0.4 Mg SL PRN Allergies Allergies: Coded Allergies: No Known Medication Allergies (Verified Allergy, Unknown, 11/14/16) ROS General: YES: Fatigue, Malaise PSYCHOLOGICAL ROS: YES: Anxiety Eyes: Yes Decreased vision HEENT: YES: Heacaches Respiratory: YES: Cough Cardiovascular: yes Chest Pain Gastrointestinal: Yes Constipation Genitourinary: YES Other (ANURIA) Musculoskeletal: Yes Muscular Weakness Neurological: Yes Weakness Skin: Yes Dry Skin Physical Exam General: Alert, Oriented X3, Cooperative, No acute distress HEENT: Atraumatic, PERRLA Lungs: Clear to auscultation Heart: Regular rate Abdomen: Normal bowel sounds, Soft, No tenderness Extremities: No clubbing, No edema, Other (LEFT ARM AVF HAS A GOOD THRILL AND BRUIT) Skin: No breakdown Neuro: Normal speech, Cranial nerves 3-12 NL Psych/Mental Status: Other (FLAT AFFECT) MUSCULOSKELETAL: No deformity, No swelling Vitals VITALS Vital Signs Date Time Temp Pulse Resp B/P (MAP) Pulse Ox O2 Delivery O2 Flow Rate FiO2 12/27/16 10:19 97.9 70 19 138/67 (90) Room Air 97.9 12/27/16 07:34 100 Labs Labs Laboratory Tests Test 12/27/16 02:56 White Blood Count 11.5 x10^3/uL (4.0-11.0) Red Blood Count 3.38 x10^6/uL (4.30-5.70) Hemoglobin 11.3 g/dL (13.0-17.5) Hematocrit 34.8 % (39.0-53.0) Mean Corpuscular Volume 103 fL (79-100) Mean Corpuscular Hemoglobin 33 pg (25-35) Mean Corpuscular Hemoglobin Concent 32 g/dL (31-37) Red Cell Distribution Width 16.3 % (11.5-14.5) Platelet Count 162 x10^3/uL (140-400) Neutrophils (%) (Auto) 89 % (31-73) Lymphocytes (%) (Auto) 4 % (24-48) Monocytes (%) (Auto) 6 % (0-9) Eosinophils (%) (Auto) 0 % (0-3) Basophils (%) (Auto) 1 % (0-3) Neutrophils # (Auto) 10.3 x10^3uL (1.8-7.7) Lymphocytes # (Auto) 0.5 x10^3/uL (1.0-4.8) Monocytes # (Auto) 0.7 x10^3/uL (0.0-1.1) Eosinophils # (Auto) 0.0 x10^3/uL (0.0-0.7) Basophils # (Auto) 0.1 x10^3/uL (0.0-0.2) Segmented Neutrophils % 94 % (35-66) Lymphocytes % 2 % (24-48) Monocytes % 4 % (0-10) Platelet Estimate Adequate (ADEQUATE) Sodium Level 143 mmol/L (136-145) Potassium Level 3.3 mmol/L (3.5-5.1) Chloride Level 104 mmol/L (98-107) Carbon Dioxide Level 21 mmol/L (21-32) Anion Gap 18 (6-14) Blood Urea Nitrogen 47 mg/dL (8-26) Creatinine 7.0 mg/dL (0.7-1.3) Estimated GFR (Cockcroft-Gault) 9.0 BUN/Creatinine Ratio 7 (6-20) Glucose Level 87 mg/dL (70-99) Calcium Level 8.9 mg/dL (8.5-10.1) Total Bilirubin 0.6 mg/dL (0.2-1.0) Aspartate Amino Transf (AST/SGOT) 27 U/L (15-37) Alanine Aminotransferase (ALT/SGPT) 29 U/L (16-63) Alkaline Phosphatase 74 U/L (46-116) Troponin I Quantitative 0.063 ng/mL (0.000-0.055) Total Protein 5.8 g/dL (6.4-8.2) Albumin 2.4 g/dL (3.4-5.0) Albumin/Globulin Ratio 0.7 (1.0-1.7) Triglycerides Level 34 mg/dL (0-150) Cholesterol Level 161 mg/dL (0-200) LDL Cholesterol, Calculated 36 mg/dL (0-100) VLDL Cholesterol, Calculated 7 mg/dL (0-40) Non-HDL Cholesterol Calculated 43 mg/dL (0-129) HDL Cholesterol 118 mg/dL (40-60) Cholesterol/HDL Ratio 1.4 Laboratory Tests Test 12/27/16 02:56 White Blood Count 11.5 x10^3/uL (4.0-11.0) Red Blood Count 3.38 x10^6/uL (4.30-5.70) Hemoglobin 11.3 g/dL (13.0-17.5) Hematocrit 34.8 % (39.0-53.0) Mean Corpuscular Volume 103 fL (79-100) Mean Corpuscular Hemoglobin 33 pg (25-35) Mean Corpuscular Hemoglobin Concent 32 g/dL (31-37) Red Cell Distribution Width 16.3 % (11.5-14.5) Platelet Count 162 x10^3/uL (140-400) Neutrophils (%) (Auto) 89 % (31-73) Lymphocytes (%) (Auto) 4 % (24-48) Monocytes (%) (Auto) 6 % (0-9) Eosinophils (%) (Auto) 0 % (0-3) Basophils (%) (Auto) 1 % (0-3) Neutrophils # (Auto) 10.3 x10^3uL (1.8-7.7) Lymphocytes # (Auto) 0.5 x10^3/uL (1.0-4.8) Monocytes # (Auto) 0.7 x10^3/uL (0.0-1.1) Eosinophils # (Auto) 0.0 x10^3/uL (0.0-0.7) Basophils # (Auto) 0.1 x10^3/uL (0.0-0.2) Segmented Neutrophils % 94 % (35-66) Lymphocytes % 2 % (24-48) Monocytes % 4 % (0-10) Platelet Estimate Adequate (ADEQUATE) Sodium Level 143 mmol/L (136-145) Potassium Level 3.3 mmol/L (3.5-5.1) Chloride Level 104 mmol/L (98-107) Carbon Dioxide Level 21 mmol/L (21-32) Anion Gap 18 (6-14) Blood Urea Nitrogen 47 mg/dL (8-26) Creatinine 7.0 mg/dL (0.7-1.3) Estimated GFR (Cockcroft-Gault) 9.0 BUN/Creatinine Ratio 7 (6-20) Glucose Level 87 mg/dL (70-99) Calcium Level 8.9 mg/dL (8.5-10.1) Total Bilirubin 0.6 mg/dL (0.2-1.0) Aspartate Amino Transf (AST/SGOT) 27 U/L (15-37) Alanine Aminotransferase (ALT/SGPT) 29 U/L (16-63) Alkaline Phosphatase 74 U/L (46-116) Troponin I Quantitative 0.063 ng/mL (0.000-0.055) Total Protein 5.8 g/dL (6.4-8.2) Albumin 2.4 g/dL (3.4-5.0) Albumin/Globulin Ratio 0.7 (1.0-1.7) Triglycerides Level 34 mg/dL (0-150) Cholesterol Level 161 mg/dL (0-200) LDL Cholesterol, Calculated 36 mg/dL (0-100) VLDL Cholesterol, Calculated 7 mg/dL (0-40) Non-HDL Cholesterol Calculated 43 mg/dL (0-129) HDL Cholesterol 118 mg/dL (40-60) Cholesterol/HDL Ratio 1.4 Assessment/Plan Assessment/Plan IMP ESRD ANEMIA MILD LEUCOCYTOSIS MILD HYPOKALEMIA CHEST PAIN PLAN HD TODAY UF TO ANEUDY CARDIOLOGY EVAL GI EVAL ANTIBIOTICS JOSSE PLUMMER MD Dec 27, 2016 10:51
[2016-12-27] MEDS: MAGNESIUM OXIDE 400 MG TABLET PO SCH ×2 (11:14→20:54)
[2016-12-27] MEDS: ASCORBIC ACID 500 MG TABLET PO SCH (11:14)
[2016-12-27] MEDS: AZITHROMYCIN 250 MG TABLET. PO SCH (11:14)
[2016-12-27] MEDS: CHOLECALCIFEROL (VITAMIN D3) 1,000 UNIT TABLET PO SCH (11:14)
[2016-12-27] MEDS: PANTOPRAZOLE 40 MG TABLET.DR. PO SCH ×2 (11:14→16:30)
[2016-12-27] MEDS: FOLIC/VIT B COMP W-C (RENAL) TABLET. PO SCH (11:14)
[2016-12-27] MEDS: AMIODARONE HCL 200 MG TABLET. PO SCH (11:15)
[2016-12-27] MEDS: SENNOSIDES 8.6 MG TABLET PO SCH ×2 (11:15→20:53)
[2016-12-27] MEDS: ASPIRIN ENTERIC COATED 81 MG TABLET.DR. PO SCH (11:15)
[2016-12-27] MEDS: ACETAMINOPHEN 325 MG TABLET. PO SCH ×2 (11:16→20:53)
[2016-12-27] MEDS ORDERED: GUAI600T47 PO (11:36)
[2016-12-27] MEDS ORDERED: POLY17PO3 PO (11:36)
[2016-12-27] MEDS ORDERED: FEXO180T81 PO (11:36)
[2016-12-27] MEDS ORDERED: PERFLUTREN PROTEIN-A MICROSPHR 0.22 MG/ML 3 ML VIAL. IV ONE (12:00)
--- NOTE | 2016-12-27 14:06 | CARD ---
APPROVED REPORT EXAM: Two-dimensional and M-mode echocardiogram with Doppler and color Doppler. Other Information Quality : Good INDICATION Cardiomyopathy Echo Enhancing Agent Indication: Rule out thrombus Agent/Amount Used: Optison 3mL 2D DIMENSIONS Left Atrium(2D)4.3 (1.6-4.0cm)IVSd1.3 (0.7-1.1cm) Aortic Root(2D)2.9 (2.0-3.7cm)LVDd5.4 (3.9-5.9cm) LVOT Diameter2.0 (1.8-2.4cm)PWd1.2 (0.7-1.1cm) LVDs4.6 (2.5-4.0cm)FS (%) 14.5 % SV43.2 mlLVEF(%)30.6 (>50%) Aortic Valve AoV Peak Chris.134.4cm/sAoV VTI30.7cm AO Peak GR.7.2mmHgLVOT Peak Chris.95.4cm/s AO Mean GR.4mmHgAVA (VMAX)2.25cm2 PETAR (VTI)2.10cm2 Mitral Valve MV E Xpvnwxmc98.1cm/sMV DECEL [id number] MV A Hlyddwku357.1cm/sE/A Ratio0.7 Tricuspid Valve TR P. Gwtpxiig564jo/sRAP [id number] TR Peak Gr.[id number] LEFT VENTRICLE The Left Ventricle is severely dilated. There is mild concentric left ventricular hypertrophy. Left v entricle systolic function is severely impaired. The Ejection Fraction is 25%. Transmitral Doppler fl ow pattern is Grade I-abnormal relaxation pattern. RIGHT VENTRICLE The right ventricle is normal size. The right ventricular systolic function is normal. Pacer wire see n in Right Ventricle cavity. ATRIA The left atrium is mildly dilated. The right atrium size is normal. The interatrial septum is intact with no evidence for an atrial septal defect or patent foramen ovale as noted on 2-D or Doppler imagi ng. AORTIC VALVE The aortic valve is calcified but opens well. Doppler and Color Flow revealed trace to mild aortic re gurgitation. There is no significant aortic valvular stenosis. MITRAL VALVE The mitral valve is mildly thickened. There is no evidence of mitral valve prolapse. There is no mitr al valve stenosis. Doppler and Color-flow revealed mild mitral regurgitation. TRICUSPID VALVE The tricuspid valve is normal in structure. Doppler and Color Flow revealed mild tricuspid regurgitat ion. There is mild pulmonary hypertension. The PA pressure was estimated at 36 mmHg. There is no tric uspid valve prolapse or vegetation. There is no tricuspid valve stenosis. PULMONIC VALVE The pulmonic valve is mildly thickened. Doppler and Color Flow revealed trace pulmonic valvular regur gitation. There is no pulmonic valvular stenosis. GREAT VESSELS The aortic root is normal in size. The ascending aorta is normal in size. The IVC is normal in size a nd collapses >50% with inspiration. PERICARDIAL EFFUSION There is no pleural effusion. There is no evidence of significant pericardial effusion. Critical Notification Critical Value: No <Conclusion> Left ventricle systolic function is severely impaired. The Ejection Fraction is 25%. Transmitral Doppler flow pattern is Grade I-abnormal relaxation pattern. Pacer wire seen in right atrium and right ventricle. Mild mitral regurgitation. Mild tricuspid regurgitation. The PA pressure was estimated at 36 mmHg. There is no evidence of significant pericardial effusion.
--- NOTE | 2016-12-27 14:12 | CONS ---
DATE OF CONSULTATION: 12/27/2016 ATTENDING PHYSICIAN: Dr. Jelani Austin. REASON FOR CONSULTATION: Abnormal CT chest and lung nodules. HISTORY OF PRESENT ILLNESS: The patient is an 86-year-old male who has no significant tobacco history. He has a history of CAD, pulmonary hypertension, history of pericardial effusion and tamponade. The patient came to the hospital after he noticed that the food was sticking in the throat for 4-5 days. He was finally able to swallow it and had some reflux symptoms and epigastric tenderness. He had no significant chest pain. No shortness of breath. No nausea, vomiting or diarrhea. The patient underwent imaging study, which was reviewed by me. He had a CT chest, which showed trace left basal pleural effusion with associated atelectasis/infiltrate. There was a tiny 5 mm right upper lobe ground glass nodule. There were some hepatic hypodensities measuring 1.4 cm. There was also diffuse thickening of the left ventricular apex and outpouching consistent with left ventricular aneurysm. There were thyroid nodules seen as well. I have been asked to see him for further evaluation. PAST MEDICAL HISTORY: Significant for history of AFib, not a anticoagulation candidate; history of CAD; CHF; hypertension; OH; pulmonary hypertension; history of pericardial effusion, pericardial tamponade with anticoagulation; history of peripheral vascular disease; history of pneumonia; peripheral neuropathy; anemia; weakness; end-stage renal disease and hyperparathyroidism. PAST SURGICAL HISTORY: Prostatectomy, appendectomy, right nephrectomy, pacemaker, AICD, appendectomy. SOCIAL HISTORY: Nonsmoker. FAMILY HISTORY: Noncontributory to lungs. REVIEW OF SYSTEMS: A 12-point systems obtained, pertinent positives discussed in history of present illness, otherwise noncontributory. All systems that were negative were reviewed as well. PHYSICAL EXAMINATION: GENERAL: He is awake, in no obvious respiratory distress. LUNGS: Clear. CARDIOVASCULAR: Regular rate and rhythm. ABDOMEN: Soft. EXTREMITIES: With trace pitting edema. LABORATORY DATA: Reviewed. White cell count 11.5, hemoglobin 11.3 and platelets are 162. BUN is 47 and a creatinine of 7.0. IMPRESSION: 1. Dysphagia to solid food. Consider GI consultation. 2. Abnormal CT chest with tiny nodule in the right upper lobe and mild atelectasis and tiny effusion on the left lower lobe. He is at low risk for malignancy as he has no significant tobacco history. At this time, I would recommend repeating a CT chest in 3-6 months. 3. Abnormal troponin. 4. Gastroesophageal reflux disease. 5. Chronic systolic dysfunction with ejection fraction of 25%. 6. End-stage renal disease, on hemodialysis. 7. Secondary pulmonary hypertension. RECOMMENDATIONS: 1. From a pulmonary standpoint, he is at risk for aspiration. I would get a speech evaluation and GI evaluation and make further recommendations. 2. Nodules are very tiny and he is at low risk for malignancy. A CT chest in 3-6 months would be reasonable. 3. Follow Cardiology recommendation. 4. Follow GI recommendation. 5. Overall pulmonary status stable. We will follow along with you. ELVIS CADENA MD DR: SOFIE/robin JOB#: [id number] / [id number] CARTER
[2016-12-27 19:15] VITALS: BP 113/57
[2016-12-27] MEDS: LACTOBACILLUS RHAMNOSUS GG 1 CAPSULE. PO SCH (20:53)
[2016-12-27] MEDS: SIMVASTATIN 20 MG TABLET PO SCH (20:53)
[2016-12-27] MEDS: SERTRALINE 25 MG TABLET. PO SCH (20:53)
[2016-12-27 23:20] VITALS: BP 113/57
[2016-12-28] VITALS (12 sets, daily range): BP systolic 106–141; BP diastolic 44–69
[2016-12-28 07:22] LABS: BASO % 0 % (0-3); EOS % 2 % (0-3); HEMATOCRIT 32.6 % (39.0-53.0); HEMOGLOBIN 10.7 g/dL (13.0-17.5); LYMPH # 0.7 x10^3/uL (1.0-4.8); LYMPH % 11 % (24-48); MEAN CORPUSCULAR HEMOGLOBIN 34 pg (25-35); MEAN CORPUSCULAR HGB CONC 33 g/dL (31-37); MEAN CORPUSCULAR VOLUME 102 fL (79-100); MONO % 10 % (0-9); NEUT % 77 % (31-73); PLATELET COUNT 153 x10^3/uL (140-400); RED CELL DISTRIBUTION WIDTH 16.1 % (11.5-14.5); WHITE BLOOD COUNT 5.9 x10^3/uL (4.0-11.0)
[2016-12-28 07:23] LABS: CALCIUM 8.7 mg/dL (8.5-10.1); CREATININE 4.8 mg/dL (0.7-1.3); POTASSIUM 3.3 mmol/L (3.5-5.1)
[2016-12-28] MEDS: PANTOPRAZOLE 40 MG TABLET.DR. PO SCH ×2 (07:30→17:46)
--- NOTE | 2016-12-28 07:49 | PDOC ---
ALLENIVANA BOAT LOADER 12/28/16 0749: IM PROGRESS NOTES- Subjective Subjective no happy with being in hospital, continues with reflux symptoms Objective Objective alert, no distress Vitals Vital Signs Date Time Temp Pulse Resp B/P (MAP) Pulse Ox O2 Delivery O2 Flow Rate FiO2 12/28/16 03:15 97.4 65 18 126/60 (82) 90 Room Air 97.4 Input & Output Intake and Output 12/28/16 07:00 Intake Total 650 ml Output Total 0 ml Balance 650 ml Intake Oral 650 ml Output Urine Total 0 ml Physical Exam Physical Exam General appearance - alert,well appearing, and in no distress Mental Status - alert, oriented to person, place, and time, affect appropriate to mood Head - normal Chest - clear to auscultation, no wheezes, rales or rhonchi, symmetric air entry Heart - S1 and S2 normal Abdomen - soft, +tender epigastric, nondistended, BS + Neurological - no acute focal neurological deficit noted Musculoskeletal - no muscular tenderness noted Extremities - no pedal edema Skin - warm and dry Labs Laboratory Tests Test 12/27/16 02:56 12/27/16 08:00 12/27/16 10:25 12/27/16 17:10 White Blood Count 11.5 x10^3/uL (4.0-11.0) Red Blood Count 3.38 x10^6/uL (4.30-5.70) Hemoglobin 11.3 g/dL (13.0-17.5) Hematocrit 34.8 % (39.0-53.0) Mean Corpuscular Volume 103 fL (79-100) Mean Corpuscular Hemoglobin 33 pg (25-35) Mean Corpuscular Hemoglobin Concent 32 g/dL (31-37) Red Cell Distribution Width 16.3 % (11.5-14.5) Platelet Count 162 x10^3/uL (140-400) Neutrophils (%) (Auto) 89 % (31-73) Lymphocytes (%) (Auto) 4 % (24-48) Monocytes (%) (Auto) 6 % (0-9) Eosinophils (%) (Auto) 0 % (0-3) Basophils (%) (Auto) 1 % (0-3) Neutrophils # (Auto) 10.3 x10^3uL (1.8-7.7) Lymphocytes # (Auto) 0.5 x10^3/uL (1.0-4.8) Monocytes # (Auto) 0.7 x10^3/uL (0.0-1.1) Eosinophils # (Auto) 0.0 x10^3/uL (0.0-0.7) Basophils # (Auto) 0.1 x10^3/uL (0.0-0.2) Segmented Neutrophils % 94 % (35-66) Lymphocytes % 2 % (24-48) Monocytes % 4 % (0-10) Platelet Estimate Adequate (ADEQUATE) Sodium Level 143 mmol/L (136-145) Potassium Level 3.3 mmol/L (3.5-5.1) Chloride Level 104 mmol/L (98-107) Carbon Dioxide Level 21 mmol/L (21-32) Anion Gap 18 (6-14) Blood Urea Nitrogen 47 mg/dL (8-26) Creatinine 7.0 mg/dL (0.7-1.3) Estimated GFR (Cockcroft-Gault) 9.0 BUN/Creatinine Ratio 7 (6-20) Glucose Level 87 mg/dL (70-99) Calcium Level 8.9 mg/dL (8.5-10.1) Total Bilirubin 0.6 mg/dL (0.2-1.0) Aspartate Amino Transf (AST/SGOT) 27 U/L (15-37) Alanine Aminotransferase (ALT/SGPT) 29 U/L (16-63) Alkaline Phosphatase 74 U/L (46-116) Troponin I Quantitative 0.063 ng/mL (0.000-0.055) 0.065 ng/mL (0.000-0.055) 0.060 ng/mL (0.000-0.055) Total Protein 5.8 g/dL (6.4-8.2) Albumin 2.4 g/dL (3.4-5.0) Albumin/Globulin Ratio 0.7 (1.0-1.7) Triglycerides Level 34 mg/dL (0-150) Cholesterol Level 161 mg/dL (0-200) LDL Cholesterol, Calculated 36 mg/dL (0-100) VLDL Cholesterol, Calculated 7 mg/dL (0-40) Non-HDL Cholesterol Calculated 43 mg/dL (0-129) HDL Cholesterol 118 mg/dL (40-60) Cholesterol/HDL Ratio 1.4 Nasal Screen MRSA (PCR) Negative (Negative) Test 12/28/16 06:37 White Blood Count 5.9 x10^3/uL (4.0-11.0) Red Blood Count 3.20 x10^6/uL (4.30-5.70) Hemoglobin 10.7 g/dL (13.0-17.5) Hematocrit 32.6 % (39.0-53.0) Mean Corpuscular Volume 102 fL (79-100) Mean Corpuscular Hemoglobin 34 pg (25-35) Mean Corpuscular Hemoglobin Concent 33 g/dL (31-37) Red Cell Distribution Width 16.1 % (11.5-14.5) Platelet Count 153 x10^3/uL (140-400) Neutrophils (%) (Auto) 77 % (31-73) Lymphocytes (%) (Auto) 11 % (24-48) Monocytes (%) (Auto) 10 % (0-9) Eosinophils (%) (Auto) 2 % (0-3) Basophils (%) (Auto) 0 % (0-3) Neutrophils # (Auto) 4.5 x10^3uL (1.8-7.7) Lymphocytes # (Auto) 0.7 x10^3/uL (1.0-4.8) Monocytes # (Auto) 0.6 x10^3/uL (0.0-1.1) Eosinophils # (Auto) 0.1 x10^3/uL (0.0-0.7) Basophils # (Auto) 0.0 x10^3/uL (0.0-0.2) Sodium Level 141 mmol/L (136-145) Potassium Level 3.3 mmol/L (3.5-5.1) Chloride Level 102 mmol/L (98-107) Carbon Dioxide Level 23 mmol/L (21-32) Anion Gap 16 (6-14) Blood Urea Nitrogen 23 mg/dL (8-26) Creatinine 4.8 mg/dL (0.7-1.3) Estimated GFR (Cockcroft-Gault) 14.0 Glucose Level 63 mg/dL (70-99) Calcium Level 8.7 mg/dL (8.5-10.1) Laboratory Tests Test 12/27/16 08:00 12/27/16 10:25 12/27/16 17:10 12/28/16 06:37 Nasal Screen MRSA (PCR) Negative (Negative) Troponin I Quantitative 0.065 ng/mL (0.000-0.055) 0.060 ng/mL (0.000-0.055) White Blood Count 5.9 x10^3/uL (4.0-11.0) Red Blood Count 3.20 x10^6/uL (4.30-5.70) Hemoglobin 10.7 g/dL (13.0-17.5) Hematocrit 32.6 % (39.0-53.0) Mean Corpuscular Volume 102 fL (79-100) Mean Corpuscular Hemoglobin 34 pg (25-35) Mean Corpuscular Hemoglobin Concent 33 g/dL (31-37) Red Cell Distribution Width 16.1 % (11.5-14.5) Platelet Count 153 x10^3/uL (140-400) Neutrophils (%) (Auto) 77 % (31-73) Lymphocytes (%) (Auto) 11 % (24-48) Monocytes (%) (Auto) 10 % (0-9) Eosinophils (%) (Auto) 2 % (0-3) Basophils (%) (Auto) 0 % (0-3) Neutrophils # (Auto) 4.5 x10^3uL (1.8-7.7) Lymphocytes # (Auto) 0.7 x10^3/uL (1.0-4.8) Monocytes # (Auto) 0.6 x10^3/uL (0.0-1.1) Eosinophils # (Auto) 0.1 x10^3/uL (0.0-0.7) Basophils # (Auto) 0.0 x10^3/uL (0.0-0.2) Sodium Level 141 mmol/L (136-145) Potassium Level 3.3 mmol/L (3.5-5.1) Chloride Level 102 mmol/L (98-107) Carbon Dioxide Level 23 mmol/L (21-32) Anion Gap 16 (6-14) Blood Urea Nitrogen 23 mg/dL (8-26) Creatinine 4.8 mg/dL (0.7-1.3) Estimated GFR (Cockcroft-Gault) 14.0 Glucose Level 63 mg/dL (70-99) Calcium Level 8.7 mg/dL (8.5-10.1) Meds Current Medications Acetaminophen (Tylenol) 325 mg PRN Q4HRS PRN PO MILD PAIN / TEMP; Start at 08:15 Acetaminophen (Tylenol) 650 mg BID PO Last administered on 12/27/16 20:53; Start 12/27/16 at 09:00 Albuterol/ Ipratropium (Duoneb) 3 ml RTQID NEB Last administered on 12/27/16 19:22; Start 12/27/16 at 09:00 Amiodarone HCl (Cordarone) 200 mg DAILY07 PO Last administered on 12/27/16 11 :15; Start 12/27/16 at 08:30 Ascorbic Acid (Vitamin C) 500 mg DAILY PO Last administered on 12/27/16 11:14 ; Start 12/27/16 at 09:00 Aspirin (Ecotrin) 81 mg DAILY PO Last administered on 12/27/16 11:15; Start 12/27/16 at 09:00 Azithromycin (Zithromax) 250 mg DAILY PO Last administered on 12/27/16 11:14 ; Start 12/27/16 at 09:00 Ceftriaxone Sodium 1 gm/ Dextrose 50 ml @ 100 mls/hr Q24H IV ; Start 12/27/16 at 08:15; Status UNV Ceftriaxone Sodium (Rocephin) 1 gm Q24H IVP Last administered on 12/27/16 09: 47; Start 12/27/16 at 09:00 Docusate Sodium (Colace) 100 mg BID PO Last administered on 12/27/16 20:53; Start 12/27/16 at 09:00 Guaifenesin (Mucinex) 600 mg BID PO Last administered on 12/27/16 20:53; Start 12/27/16 at 09:00 Info (Do NOT chart on this entry -- for MONITORING) 1 each PRN DAILY PRN MC SEE COMMENTS; Start 12/27/16 at 08:30; Stop 12/29/16 at 08:29 Iohexol (Omnipaque 240 Mg/ml) 30 ml 1X ONCE PO ; Start 12/27/16 at 08:30; Stop 12/27/16 at 08:31; Status DC Iohexol (Omnipaque 300 Mg/ml) 75 ml 1X ONCE IV ; Start 12/27/16 at 08:30; Stop 12/27/16 at 08:31; Status DC Lactobacillus Rhamnosus (Culturelle) 1 cap BID PO Last administered on 20:53; Start 12/27/16 at 21:00 Magnesium Oxide (Magnesium Oxide) 400 mg BID PO Last administered on 20:54; Start 12/27/16 at 09:00 Pantoprazole Sodium (Protonix) 40 mg BIDAC PO Last administered on 12/27/16 11:14; Start 12/27/16 at 09:00 Perflutren Protein Type A Microsphe (Optison) 0.66 mg 1X ONCE IV Last administered on 12/27/16 11:57; Start 12/27/16 at 12:00; Stop 12/27/16 at 12 :05; Status DC Polyethylene Glycol (miraLAX PACKET) 17 gm BID PO Last administered on 20:53; Start 12/27/16 at 09:00 Sennosides (Senna) 8.6 mg BID PO Last administered on 12/27/16 20:53; Start 12/27/16 at 09:00 Sertraline HCl (Zoloft) 75 mg HS PO Last administered on 12/27/16 20:53; Start 12/27/16 at 21:00 Simvastatin (Zocor) 20 mg HS PO Last administered on 12/27/16 20:53; Start 12/27/16 at 21:00 Tramadol HCl (Ultram) 50 mg BID PO Last administered on 12/27/16 20:53; Start 12/27/16 at 09:00 Vitamin B Complex/ Vitamin C (Lizet-David) 1 tab DAILY PO Last administered on 11:14; Start 12/27/16 at 09:00 Vitamin D (Vitamin D3) 1,000 unit DAILY PO Last administered on 12/27/16 11: 14; Start 12/27/16 at 09:00 Assessment Assessment IMPRESSION: 1. epigastric pain 2. dysphagia with sensation food sticking in throat 3. abnormal CXR suggestive of aspiration pneumonia no sepsis 4. abnormal troponin 5. GERD with reflux symptoms 6. chronic CHF systolic EF 25% diastolic no acute 7. hypokalemia 8. ischemic CM with AICD 9. anemia ESRD/Fe 10. CAD with h/o CT, PCI LAD 11. moderate weakness and debility chronic 12. moderate PCL malnutrition chronic 13. HTN 14. hyperlipidemia 15. ESRD hemodialysis MWF 16. h/o prostate Ca with prostatectomy 17. h/o AFib not coumadin candidate 18. pulmonary HTN 19. peripheral neuropathy 20. anxiety 21. depression 22. coccyx and L buttock wounds POA PLAN: CT chest 12/26/16: 1. Trace left pleural effusion with mild adjacent patchy consolidation which may represent chronic scarring or pneumonia. 2. Small, 0.5 cm, right upper lobe groundglass nodule, indeterminate. Follow-up CT chest in 3 months is recommended to assess for stability. 3. Hepatic hypodensities, one of which has developed since prior examination measuring 1.4 cm and is incomplete to characterize, indeterminate. Follow-up MRI abdomen without with contrast is recommended for further characterization. 4. 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 Underlying thrombus cannot be excluded. Clinical correlation is recommended. If further imaging evaluation is clinically indicated, cardiac MR or CT with contrast could be obtained. 5. Bilateral thyroid nodules, right measuring 2.4 cm. Nonemergent follow-up thyroid ultrasound is recommended if not already performed. PLAN: 12/28/16 aspiration pneumonia - Rocephin/zithromax continued - CT chest reviewed- repeat 3-6 months to evaluate nodule - speech eval for aspiration leukocytosis improved WBC 5.9 dysphagia - GI consult - EGD today? 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 Figueroa hepatic hypodensity per CT - new - defer further orders to Dr. Figueroa 12/27/16 aspiration pneumonia - WBC 11.5 Temp 99.7F nebulizer treatment - mucinex - Rocephin IV Zithromax IV - consult pulmonary - CT chest pending - no sepsis abnormal troponin/atypical chest pain - cardiology consult epigastric pain/gerd with symptoms/dysphagia - consult GI - PPI ESRD - hypokalemia K3.3 - renal consulted - continue dialysis in patient ICM/CHF - stable CAD with h/o CT and PCI stent LAD - continue home meds AFib - not anticoagulant candidate - on amiodarone wounds - wound care consult - see pics in hard chart For further plan of care, please refer to the orders. Plan Plan Patient denies choking sensation or dysphagia on a daily basis.He had problems with food sticking in the lower chest several days ago. The patient was seen and examined by me. Chart reviewed and plan of care formulated. Discussed with, reviewed and agree with PEST LOCATOR's notes, plan of care and orders with modifications as necessary. For more details regarding further plans, please refer to the orders. SURAJ FIGUEROA MD 12/28/16 1025: IM PROGRESS NOTES- Assessment Assessment Thyroid nodules on CT chest.No Thyromegaly.Check free T4,TSH.No other workup at this time due to his age and comorbidities. Systolic CHF- chronic EF 25%. Anxiety The patient was seen and examined by me. Chart reviewed and plan of care formulated. Discussed with, reviewed and agree with PEST LOCATOR's notes, plan of care and orders with modifications as necessary. For more details regarding further plans, please refer to the orders. IVANA VILLA APRN Dec 28, 2016 07:49 SURAJ FIGUEROA MD Dec 28, 2016 10:25
[2016-12-28] MEDS: IPRATRPIUM/ALBUTEROL 0.5/2.5MG 3 ML NEBU. NEB SCH ×4 (08:42→19:36)
[2016-12-28] MEDS: ASCORBIC ACID 500 MG TABLET PO SCH ×2 (10:00→15:33)
[2016-12-28] MEDS: traMADol 50 MG TABLET PO SCH ×2 (10:00→21:12)
[2016-12-28] MEDS: SENNOSIDES 8.6 MG TABLET PO SCH ×2 (10:01→15:31)
[2016-12-28] MEDS: FOLIC/VIT B COMP W-C (RENAL) TABLET. PO SCH ×2 (10:01→15:33)
[2016-12-28] MEDS: AMIODARONE HCL 200 MG TABLET. PO SCH (10:03)
[2016-12-28] MEDS: cefTRIAXone IV Push 1 GM VIAL. IVP SCH (10:04)
--- NOTE | 2016-12-28 11:16 | PDOC ---
Renal-Progress Notes Subjective Notes Notes NONE History of Present Illness Hx of present illness BETTER Vitals Vitals Vital Signs Date Time Temp Pulse Resp B/P (MAP) Pulse Ox O2 Delivery O2 Flow Rate FiO2 12/28/16 10:03 77 123/56 12/28/16 10:00 16 Room Air 12/28/16 08:42 98 12/28/16 07:00 97.4 97.4 Weight Weight [ ] I.O. Intake and Output Intake and Output 12/28/16 07:00 Intake Total 650 ml Output Total 0 ml Balance 650 ml Intake Oral 650 ml Output Urine Total 0 ml Labs Labs Laboratory Tests Test 12/27/16 17:10 12/28/16 06:37 Troponin I Quantitative 0.060 ng/mL (0.000-0.055) White Blood Count 5.9 x10^3/uL (4.0-11.0) Red Blood Count 3.20 x10^6/uL (4.30-5.70) Hemoglobin 10.7 g/dL (13.0-17.5) Hematocrit 32.6 % (39.0-53.0) Mean Corpuscular Volume 102 fL (79-100) Mean Corpuscular Hemoglobin 34 pg (25-35) Mean Corpuscular Hemoglobin Concent 33 g/dL (31-37) Red Cell Distribution Width 16.1 % (11.5-14.5) Platelet Count 153 x10^3/uL (140-400) Neutrophils (%) (Auto) 77 % (31-73) Lymphocytes (%) (Auto) 11 % (24-48) Monocytes (%) (Auto) 10 % (0-9) Eosinophils (%) (Auto) 2 % (0-3) Basophils (%) (Auto) 0 % (0-3) Neutrophils # (Auto) 4.5 x10^3uL (1.8-7.7) Lymphocytes # (Auto) 0.7 x10^3/uL (1.0-4.8) Monocytes # (Auto) 0.6 x10^3/uL (0.0-1.1) Eosinophils # (Auto) 0.1 x10^3/uL (0.0-0.7) Basophils # (Auto) 0.0 x10^3/uL (0.0-0.2) Sodium Level 141 mmol/L (136-145) Potassium Level 3.3 mmol/L (3.5-5.1) Chloride Level 102 mmol/L (98-107) Carbon Dioxide Level 23 mmol/L (21-32) Anion Gap 16 (6-14) Blood Urea Nitrogen 23 mg/dL (8-26) Creatinine 4.8 mg/dL (0.7-1.3) Estimated GFR (Cockcroft-Gault) 14.0 Glucose Level 63 mg/dL (70-99) Calcium Level 8.7 mg/dL (8.5-10.1) Review of Systems Constitutional: yes: weakness, alert, oriented Ears/Nose/Throat: Yes: no symptom reported Eyes: Yes: no symptom reported Pulmonary: Yes dyspnea Cardiovascular: Yes no symptom reported Gastrointestional: Yes: no symptom reported Genitourinary: Yes: no symptom reported Musculoskeletal: Yes: muscle stiffness Skin: Yes no symptom reported Psychiatric/Neurological: Yes: no symptom reported Endocrine: Yes: no symptom reported Hematologic/Lymphatic: Yes: no symptom reported Physical Exam General Appearance: no apparent distress Skin: warm Respiratory: decreased breath sounds Heart: S1S2 Abdomen: soft, bowel sounds present Genitourinary: bladder flat Extremities: pulses present Neurology: alert, follow commands, Ext weakness Musculoskeletal: Osteoarthritis Assessment Assessment IMP ESRD ANEMIA HTN DYSPHAGIA PNEUMONIA PULM NODULE PLAN HD TOMORROW ARANESP ANTIBIOTICS PULM EVAL AND TX JOSSE PLUMMER MD Dec 28, 2016 11:16
--- NOTE | 2016-12-28 11:39 | PDOC ---
PULMONARY PROGRESS NOTES Subjective no soa Vitals Vital Signs Date Time Temp Pulse Resp B/P (MAP) Pulse Ox O2 Delivery O2 Flow Rate FiO2 12/28/16 10:03 77 123/56 12/28/16 10:00 16 Room Air 12/28/16 08:42 98 12/28/16 07:00 97.4 97.4 General: Alert, No acute distress Lungs: Clear Cardiovascular: S1, S2 Abdomen: Soft, Non-tender Neuro Exam: Alert Extremities: No Edema Skin: Warm Labs Laboratory Tests Test 12/27/16 02:56 12/27/16 08:00 12/27/16 10:25 12/27/16 17:10 White Blood Count 11.5 x10^3/uL (4.0-11.0) Red Blood Count 3.38 x10^6/uL (4.30-5.70) Hemoglobin 11.3 g/dL (13.0-17.5) Hematocrit 34.8 % (39.0-53.0) Mean Corpuscular Volume 103 fL (79-100) Mean Corpuscular Hemoglobin 33 pg (25-35) Mean Corpuscular Hemoglobin Concent 32 g/dL (31-37) Red Cell Distribution Width 16.3 % (11.5-14.5) Platelet Count 162 x10^3/uL (140-400) Neutrophils (%) (Auto) 89 % (31-73) Lymphocytes (%) (Auto) 4 % (24-48) Monocytes (%) (Auto) 6 % (0-9) Eosinophils (%) (Auto) 0 % (0-3) Basophils (%) (Auto) 1 % (0-3) Neutrophils # (Auto) 10.3 x10^3uL (1.8-7.7) Lymphocytes # (Auto) 0.5 x10^3/uL (1.0-4.8) Monocytes # (Auto) 0.7 x10^3/uL (0.0-1.1) Eosinophils # (Auto) 0.0 x10^3/uL (0.0-0.7) Basophils # (Auto) 0.1 x10^3/uL (0.0-0.2) Segmented Neutrophils % 94 % (35-66) Lymphocytes % 2 % (24-48) Monocytes % 4 % (0-10) Platelet Estimate Adequate (ADEQUATE) Sodium Level 143 mmol/L (136-145) Potassium Level 3.3 mmol/L (3.5-5.1) Chloride Level 104 mmol/L (98-107) Carbon Dioxide Level 21 mmol/L (21-32) Anion Gap 18 (6-14) Blood Urea Nitrogen 47 mg/dL (8-26) Creatinine 7.0 mg/dL (0.7-1.3) Estimated GFR (Cockcroft-Gault) 9.0 BUN/Creatinine Ratio 7 (6-20) Glucose Level 87 mg/dL (70-99) Calcium Level 8.9 mg/dL (8.5-10.1) Total Bilirubin 0.6 mg/dL (0.2-1.0) Aspartate Amino Transf (AST/SGOT) 27 U/L (15-37) Alanine Aminotransferase (ALT/SGPT) 29 U/L (16-63) Alkaline Phosphatase 74 U/L (46-116) Troponin I Quantitative 0.063 ng/mL (0.000-0.055) 0.065 ng/mL (0.000-0.055) 0.060 ng/mL (0.000-0.055) Total Protein 5.8 g/dL (6.4-8.2) Albumin 2.4 g/dL (3.4-5.0) Albumin/Globulin Ratio 0.7 (1.0-1.7) Triglycerides Level 34 mg/dL (0-150) Cholesterol Level 161 mg/dL (0-200) LDL Cholesterol, Calculated 36 mg/dL (0-100) VLDL Cholesterol, Calculated 7 mg/dL (0-40) Non-HDL Cholesterol Calculated 43 mg/dL (0-129) HDL Cholesterol 118 mg/dL (40-60) Cholesterol/HDL Ratio 1.4 Nasal Screen MRSA (PCR) Negative (Negative) Test 12/28/16 06:37 White Blood Count 5.9 x10^3/uL (4.0-11.0) Red Blood Count 3.20 x10^6/uL (4.30-5.70) Hemoglobin 10.7 g/dL (13.0-17.5) Hematocrit 32.6 % (39.0-53.0) Mean Corpuscular Volume 102 fL (79-100) Mean Corpuscular Hemoglobin 34 pg (25-35) Mean Corpuscular Hemoglobin Concent 33 g/dL (31-37) Red Cell Distribution Width 16.1 % (11.5-14.5) Platelet Count 153 x10^3/uL (140-400) Neutrophils (%) (Auto) 77 % (31-73) Lymphocytes (%) (Auto) 11 % (24-48) Monocytes (%) (Auto) 10 % (0-9) Eosinophils (%) (Auto) 2 % (0-3) Basophils (%) (Auto) 0 % (0-3) Neutrophils # (Auto) 4.5 x10^3uL (1.8-7.7) Lymphocytes # (Auto) 0.7 x10^3/uL (1.0-4.8) Monocytes # (Auto) 0.6 x10^3/uL (0.0-1.1) Eosinophils # (Auto) 0.1 x10^3/uL (0.0-0.7) Basophils # (Auto) 0.0 x10^3/uL (0.0-0.2) Sodium Level 141 mmol/L (136-145) Potassium Level 3.3 mmol/L (3.5-5.1) Chloride Level 102 mmol/L (98-107) Carbon Dioxide Level 23 mmol/L (21-32) Anion Gap 16 (6-14) Blood Urea Nitrogen 23 mg/dL (8-26) Creatinine 4.8 mg/dL (0.7-1.3) Estimated GFR (Cockcroft-Gault) 14.0 Glucose Level 63 mg/dL (70-99) Calcium Level 8.7 mg/dL (8.5-10.1) Laboratory Tests Test 12/27/16 17:10 12/28/16 06:37 Troponin I Quantitative 0.060 ng/mL (0.000-0.055) White Blood Count 5.9 x10^3/uL (4.0-11.0) Red Blood Count 3.20 x10^6/uL (4.30-5.70) Hemoglobin 10.7 g/dL (13.0-17.5) Hematocrit 32.6 % (39.0-53.0) Mean Corpuscular Volume 102 fL (79-100) Mean Corpuscular Hemoglobin 34 pg (25-35) Mean Corpuscular Hemoglobin Concent 33 g/dL (31-37) Red Cell Distribution Width 16.1 % (11.5-14.5) Platelet Count 153 x10^3/uL (140-400) Neutrophils (%) (Auto) 77 % (31-73) Lymphocytes (%) (Auto) 11 % (24-48) Monocytes (%) (Auto) 10 % (0-9) Eosinophils (%) (Auto) 2 % (0-3) Basophils (%) (Auto) 0 % (0-3) Neutrophils # (Auto) 4.5 x10^3uL (1.8-7.7) Lymphocytes # (Auto) 0.7 x10^3/uL (1.0-4.8) Monocytes # (Auto) 0.6 x10^3/uL (0.0-1.1) Eosinophils # (Auto) 0.1 x10^3/uL (0.0-0.7) Basophils # (Auto) 0.0 x10^3/uL (0.0-0.2) Sodium Level 141 mmol/L (136-145) Potassium Level 3.3 mmol/L (3.5-5.1) Chloride Level 102 mmol/L (98-107) Carbon Dioxide Level 23 mmol/L (21-32) Anion Gap 16 (6-14) Blood Urea Nitrogen 23 mg/dL (8-26) Creatinine 4.8 mg/dL (0.7-1.3) Estimated GFR (Cockcroft-Gault) 14.0 Glucose Level 63 mg/dL (70-99) Calcium Level 8.7 mg/dL (8.5-10.1) Medications Active Scripts Medications Dose Route/Sig Max Daily Dose Days Date Category Lindsey Allergy (Fexofenadine Hcl) 180 Mg Tablet 1 Tab PO DAILY 12/27/16 Reported Polyethylene Glycol 3350 17 Gm Powd.pack 17 Gm PO BID 12/27/16 Reported Mucinex (Guaifenesin) 600 Mg Tablet.er 1 Tab PO BID 12/27/16 Reported Tramadol Hcl 50 Mg Tablet 50 Mg PO BID 11/15/16 Rx Sertraline Hcl 25 Mg Tablet 75 Mg PO HS 11/15/16 Rx Vitamin D (Cholecalciferol (Vitamin D3)) 1,000 Unit Tablet 1,000 Unit PO DAILY 11/15/16 Rx Tylenol (Acetaminophen) 325 Mg Tablet 325 Mg PO PRN Q4HRS PRN 11/15/16 Rx Senokot (Sennosides) 8.6 Mg Tablet 1 Tab PO BID 11/14/16 Reported Ranitidine Hcl 150 Mg Capsule 75 Mg PO BID 11/14/16 Reported Melatonin 3 Mg Tablet 6 Mg PO 11/14/16 Reported Colace (Docusate Sodium) 100 Mg Capsule 100 Mg PO 11/14/16 Reported Aspir 81 (Aspirin) 81 Mg Tablet.dr 1 Tab PO DAILY 11/14/16 Reported Protonix (Pantoprazole Sodium) 40 Mg Tablet.dr 40 Mg PO DAILY 11/14/16 Reported Ascorbic Acid 500 Mg Tablet 500 Mg PO DAILY 03/28/14 Reported Nephro-David Rx Tablet (Vit B Cmplx 3/Fa/Vit C/Biotin) 1 Each Tablet 1 Each PO DAILY 07/17/13 Reported Simvastatin 20 Mg Tablet 20 Mg PO HS 01/23/13 Reported Magnesium Oxide 400 Mg Tablet 400 Mg PO BID 01/23/13 Reported Amiodarone Hcl 200 Mg Tablet 200 Mg PO DAILY07 01/23/13 Reported Tylenol (Acetaminophen) 325 Mg Tablet 650 Mg PO BID 01/23/13 Reported NITROGLYCERIN SubLingual (Nitroglycerin) 0.4 Mg Tab.subl 0.4 Mg SL PRN 01/23/13 Reported Impression . 1. Dysphagia to solid food. 2. Abnormal CT chest with tiny nodule in the right upper lobe and mild atelectasis and tiny effusion on the left lower lobe. He is at low risk for malignancy as he has no significant tobacco history. At this time, I would recommend repeating a CT chest in 3-6 months. 3. Abnormal troponin. 4. Gastroesophageal reflux disease. 5. Chronic systolic dysfunction with ejection fraction of 25%. 6. End-stage renal disease, on hemodialysis. 7. Secondary pulmonary hypertension. Plan . 1. From a pulmonary standpoint he is stable, he is at risk for aspiration. Await EGD findings to r/o stricture 2. Nodules are very tiny and he is at low risk for malignancy. A CT chest in 3-6 months would be reasonable. 3. Follow Cardiology recommendation. 4. Follow GI recommendation. 5. Overall pulmonary status stable. We will follow along with you. ELVIS CADENA MD Dec 28, 2016 11:39
[2016-12-28] MEDS ORDERED: fentaNYL PF VIAL 100 MCG/2 ML VIAL IV PRN ×2 (14:00)
[2016-12-28] MEDS: IV NORMAL SALINE 1000ML BAG 1,000 ML IV SCH ×2 (14:04→21:59)
--- NOTE | 2016-12-28 14:25 | PDOC4 ---
PROCEDURE Procedure EGD Indication: dysphagia Meds: per anesthesia Findings: E--multiple tertiary contractions throughout with some inspissated food. Friable from 33-40cm. Irregular Z-line at 40cm. G--Normal D--Normal to second portion. Sai well. IMP: Disordered esophageal motility, likely presbyesophagus Mild reflux injury. REC: PPI if not taking. Jessica martinez. Thanks. CELSO ANDRADE MD Dec 28, 2016 14:25
[2016-12-28] MEDS: POLYETHYLENE GLYCOL 3350 17 GM PACKET. PO SCH ×2 (15:30→21:00)
[2016-12-28] MEDS: MAGNESIUM OXIDE 400 MG TABLET PO SCH ×2 (15:30→21:11)
[2016-12-28] MEDS: ACETAMINOPHEN 325 MG TABLET. PO SCH ×2 (15:31→21:12)
[2016-12-28] MEDS: LACTOBACILLUS RHAMNOSUS GG 1 CAPSULE. PO SCH ×2 (15:31→21:10)
[2016-12-28] MEDS: ASPIRIN ENTERIC COATED 81 MG TABLET.DR. PO SCH (15:31)
[2016-12-28] MEDS: DOCUSATE SODIUM 100 MG CAPSULE. PO SCH ×2 (15:31→21:11)
[2016-12-28] MEDS: CHOLECALCIFEROL (VITAMIN D3) 1,000 UNIT TABLET PO SCH (15:31)
[2016-12-28] MEDS: AZITHROMYCIN 250 MG TABLET. PO SCH (15:32)
[2016-12-28] MEDS: METOCLOPRAMIDE 5 MG TABLET. PO SCH ×2 (17:46→21:15)
[2016-12-28] MEDS: SIMVASTATIN 20 MG TABLET PO SCH (21:11)
[2016-12-28] MEDS: SERTRALINE 25 MG TABLET. PO SCH (21:11)
[2016-12-29 03:05] VITALS: BP 128/53
[2016-12-29 05:40] LABS: BASO % 1 % (0-3); EOS % 2 % (0-3); HEMATOCRIT 32.9 % (39.0-53.0); HEMOGLOBIN 10.6 g/dL (13.0-17.5); LYMPH % 15 % (24-48); MEAN CORPUSCULAR HEMOGLOBIN 33 pg (25-35); MEAN CORPUSCULAR HGB CONC 32 g/dL (31-37); MEAN CORPUSCULAR VOLUME 103 fL (79-100); MONO % 7 % (0-9); NEUT % 76 % (31-73); PLATELET COUNT 186 x10^3/uL (140-400); RED CELL DISTRIBUTION WIDTH 16.3 % (11.5-14.5); WHITE BLOOD COUNT 6.9 x10^3/uL (4.0-11.0)
[2016-12-29 06:03] LABS: CREATININE 6.5 mg/dL (0.7-1.3); GFR 9.8; POTASSIUM 3.2 mmol/L (3.5-5.1)
[2016-12-29] MEDS: AMIODARONE HCL 200 MG TABLET. PO SCH (06:27)
[2016-12-29 06:32] LABS: FREE T4 0.83 ng/dL (0.76-1.46)
[2016-12-29 07:00] VITALS: BP 140/63
[2016-12-29] MEDS: IPRATRPIUM/ALBUTEROL 0.5/2.5MG 3 ML NEBU. NEB SCH (07:38)
--- NOTE | 2016-12-29 08:03 | PDOC3 ---
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 epigastric pain - presbyesophagus/GERD/motility disorder - 2. dysphagia with sensation food sticking in throat - secondary to #1 3. aspiration pneumonia 4. abnormal troponin demand ischemia 5. GERD with reflux symptoms 6. chronic CHF systolic EF 25% diastolic no acute 7. hypokalemia 8. ischemic CM with AICD 9. anemia ESRD/Fe 10. CAD with h/o CT, PCI LAD 11. moderate weakness and debility chronic 12. moderate PCL malnutrition chronic 13. HTN 14. hyperlipidemia 15. ESRD hemodialysis MWF 16. h/o prostate Ca with prostatectomy 17. h/o AFib not coumadin candidate 18. pulmonary HTN 19. peripheral neuropathy 20. anxiety 21. depression 22. Stage II coccyx decubitus ulcer POA 23. ventricular aneurysm with thrombus 24. multinodal goiter Consults Consults Jaleel Fonseca MD, Dr. Procedures Procedures Procedure EGD Indication: dysphagia Meds: per anesthesia Findings: E--multiple tertiary contractions throughout with some inspissated food. Friable from 33-40cm. Irregular Z-line at 40cm. G--Normal D--Normal to second portion. Sai well. IMP: Disordered esophageal motility, likely presbyesophagus Mild reflux injury. REC: PPI if not taking. Jessica ac. Thanks. CELSO ANDRADE MD Labs Labs Laboratory Tests Test 12/27/16 02:56 12/27/16 08:00 12/27/16 10:25 12/27/16 17:10 White Blood Count 11.5 x10^3/uL (4.0-11.0) Red Blood Count 3.38 x10^6/uL (4.30-5.70) Hemoglobin 11.3 g/dL (13.0-17.5) Hematocrit 34.8 % (39.0-53.0) Mean Corpuscular Volume 103 fL (79-100) Mean Corpuscular Hemoglobin 33 pg (25-35) Mean Corpuscular Hemoglobin Concent 32 g/dL (31-37) Red Cell Distribution Width 16.3 % (11.5-14.5) Platelet Count 162 x10^3/uL (140-400) Neutrophils (%) (Auto) 89 % (31-73) Lymphocytes (%) (Auto) 4 % (24-48) Monocytes (%) (Auto) 6 % (0-9) Eosinophils (%) (Auto) 0 % (0-3) Basophils (%) (Auto) 1 % (0-3) Neutrophils # (Auto) 10.3 x10^3uL (1.8-7.7) Lymphocytes # (Auto) 0.5 x10^3/uL (1.0-4.8) Monocytes # (Auto) 0.7 x10^3/uL (0.0-1.1) Eosinophils # (Auto) 0.0 x10^3/uL (0.0-0.7) Basophils # (Auto) 0.1 x10^3/uL (0.0-0.2) Segmented Neutrophils % 94 % (35-66) Lymphocytes % 2 % (24-48) Monocytes % 4 % (0-10) Platelet Estimate Adequate (ADEQUATE) Sodium Level 143 mmol/L (136-145) Potassium Level 3.3 mmol/L (3.5-5.1) Chloride Level 104 mmol/L (98-107) Carbon Dioxide Level 21 mmol/L (21-32) Anion Gap 18 (6-14) Blood Urea Nitrogen 47 mg/dL (8-26) Creatinine 7.0 mg/dL (0.7-1.3) Estimated GFR (Cockcroft-Gault) 9.0 BUN/Creatinine Ratio 7 (6-20) Glucose Level 87 mg/dL (70-99) Calcium Level 8.9 mg/dL (8.5-10.1) Total Bilirubin 0.6 mg/dL (0.2-1.0) Aspartate Amino Transf (AST/SGOT) 27 U/L (15-37) Alanine Aminotransferase (ALT/SGPT) 29 U/L (16-63) Alkaline Phosphatase 74 U/L (46-116) Troponin I Quantitative 0.063 ng/mL (0.000-0.055) 0.065 ng/mL (0.000-0.055) 0.060 ng/mL (0.000-0.055) Total Protein 5.8 g/dL (6.4-8.2) Albumin 2.4 g/dL (3.4-5.0) Albumin/Globulin Ratio 0.7 (1.0-1.7) Triglycerides Level 34 mg/dL (0-150) Cholesterol Level 161 mg/dL (0-200) LDL Cholesterol, Calculated 36 mg/dL (0-100) VLDL Cholesterol, Calculated 7 mg/dL (0-40) Non-HDL Cholesterol Calculated 43 mg/dL (0-129) HDL Cholesterol 118 mg/dL (40-60) Cholesterol/HDL Ratio 1.4 Nasal Screen MRSA (PCR) Negative (Negative) Test 12/28/16 06:37 12/29/16 04:45 White Blood Count 5.9 x10^3/uL (4.0-11.0) 6.9 x10^3/uL (4.0-11.0) Red Blood Count 3.20 x10^6/uL (4.30-5.70) 3.20 x10^6/uL (4.30-5.70) Hemoglobin 10.7 g/dL (13.0-17.5) 10.6 g/dL (13.0-17.5) Hematocrit 32.6 % (39.0-53.0) 32.9 % (39.0-53.0) Mean Corpuscular Volume 102 fL (79-100) 103 fL (79-100) Mean Corpuscular Hemoglobin 34 pg (25-35) 33 pg (25-35) Mean Corpuscular Hemoglobin Concent 33 g/dL (31-37) 32 g/dL (31-37) Red Cell Distribution Width 16.1 % (11.5-14.5) 16.3 % (11.5-14.5) Platelet Count 153 x10^3/uL (140-400) 186 x10^3/uL (140-400) Neutrophils (%) (Auto) 77 % (31-73) 76 % (31-73) Lymphocytes (%) (Auto) 11 % (24-48) 15 % (24-48) Monocytes (%) (Auto) 10 % (0-9) 7 % (0-9) Eosinophils (%) (Auto) 2 % (0-3) 2 % (0-3) Basophils (%) (Auto) 0 % (0-3) 1 % (0-3) Neutrophils # (Auto) 4.5 x10^3uL (1.8-7.7) 5.2 x10^3uL (1.8-7.7) Lymphocytes # (Auto) 0.7 x10^3/uL (1.0-4.8) 1.0 x10^3/uL (1.0-4.8) Monocytes # (Auto) 0.6 x10^3/uL (0.0-1.1) 0.5 x10^3/uL (0.0-1.1) Eosinophils # (Auto) 0.1 x10^3/uL (0.0-0.7) 0.1 x10^3/uL (0.0-0.7) Basophils # (Auto) 0.0 x10^3/uL (0.0-0.2) 0.0 x10^3/uL (0.0-0.2) Sodium Level 141 mmol/L (136-145) 140 mmol/L (136-145) Potassium Level 3.3 mmol/L (3.5-5.1) 3.2 mmol/L (3.5-5.1) Chloride Level 102 mmol/L (98-107) 100 mmol/L (98-107) Carbon Dioxide Level 23 mmol/L (21-32) 23 mmol/L (21-32) Anion Gap 16 (6-14) 17 (6-14) Blood Urea Nitrogen 23 mg/dL (8-26) 29 mg/dL (8-26) Creatinine 4.8 mg/dL (0.7-1.3) 6.5 mg/dL (0.7-1.3) Estimated GFR (Cockcroft-Gault) 14.0 9.8 Glucose Level 63 mg/dL (70-99) 67 mg/dL (70-99) Calcium Level 8.7 mg/dL (8.5-10.1) 9.0 mg/dL (8.5-10.1) Thyroid Stimulating Hormone (TSH) 1.774 uIU/mL (0.358-3.74) Free Thyroxine 0.83 ng/dL (0.76-1.46) Medications Medications Medications reviewed and reconciled for discharge. Brief hospital course Brief hospital course This 86 year old male who presented with chest pain was admitted. The following is a summary of his treatment: PLAN: 12/29/16 Aspiration pneumonia - Augmentin at discharge epigastric pain/gerd with symptoms/dysphagia- s/p EGD-presbyesophagus/GERD/ motility disorder - PPI, Reglan abnormal troponin - not cardiac event ventricular aneurysm with thrombus - no further work up at this time multinodal thyroid - TSH T4 WNL - no further workup Stage II decubitus ulcer - wound care following hepatic density liver - no further workup at this time hypokalemia - K 3.2 - is to have dialysis today - nephrology managing. Plan discharge to [facility] today if okay with consultants. 12/28/16 aspiration pneumonia - Rocephin/zithromax continued - CT chest reviewed- repeat 3-6 months to evaluate nodule - speech eval for aspiration leukocytosis improved WBC 5.9 dysphagia - GI consult - EGD today? 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 Austin hepatic hypodensity per CT - new - defer further orders to Dr. Austin 12/27/16 aspiration pneumonia - WBC 11.5 Temp 99.7F nebulizer treatment - mucinex - Rocephin IV Zithromax IV - consult pulmonary - CT chest pending - no sepsis abnormal troponin/atypical chest pain - cardiology consult epigastric pain/gerd with symptoms/dysphagia - consult GI - PPI ESRD - hypokalemia K3.3 - renal consulted - continue dialysis in patient ICM/CHF - stable CAD with h/o CT and PCI stent LAD - continue home meds AFib - not anticoagulant candidate - on amiodarone wounds - wound care consult - see pics in hard chart For more details regarding the past history, family history, social history, surgical history and other details, please refer to History and Physical. Please refer to discharge orders for SNU. Subjective no happy with being in hospital, continues with reflux symptoms Objective alert, no distress Vitals Vital Signs Date Time Temp Pulse Resp B/P (MAP) Pulse Ox O2 Delivery O2 Flow Rate FiO2 12/29/16 07:40 96 Room Air 12/29/16 06:27 77 103/51 12/29/16 03:05 97.9 16 97.9 12/28/16 14:39 2 Physical Exam General appearance - alert,well appearing, and in no distress Mental Status - alert, oriented to person, place, and time, affect appropriate to mood Head - normal Chest - clear to auscultation, no wheezes, rales or rhonchi, symmetric air entry Heart - S1 and S2 normal Abdomen - soft, +tender epigastric, nondistended, BS + Neurological - no acute focal neurological deficit noted Musculoskeletal - no muscular tenderness noted Extremities - no pedal edema Skin - warm and dry Medications Medications reviewed. Allergy Allergies Coded Allergies Type Severity Reaction Last Updated Verified No Known Medication Allergies Allergy Unknown 12/28/16 Yes Follow up Admit to facility MD Disposition: Custodial facility Comments Discharge Management - 35 minutes. For other details please refer to discharge instructions SURAJ AUSTIN MD 12/29/16 1024: IM DISCHARGE & PROGRESS NOTES Brief hospital course Brief hospital course The patient was seen and examined by me. Chart reviewed and plan of care formulated. Discussed with, reviewed and agree with RECREATIONAL COUNSELOR's notes, plan of care and orders with modifications as necessary. For more details regarding further plans, please refer to the orders. Discharge Management - 35 minutes. IVANA VILLA APRN Dec 29, 2016 08:03 SURAJ AUSTIN MD Dec 29, 2016 10:24
--- NOTE | 2016-12-29 08:16 | DISCH ---
DISCHARGE FINAL DIAGNOSIS Problems Medical Problems: (1) Chest pain Status: Acute (2) End stage renal failure on dialysis Status: Acute (3) Unstable angina Status: Acute CONDITION ON DISCHARGE: Stable SNF STAY <30 DAYS: Yes POST DISCHARGE ORDERS ACTIVITY ORDERS: Activity as tolerated WEIGHT BEARING STATUS: No restrictions DIET AFTER DISCHARGE: Cardiac WOUND/INCISION CARE: Change dressing (Stage II pressure ulcer on midline coccyx , clean and beefy red, no slough noted. Area cleaned and calazime cream applied to area. Daily and prn ) CHECKS AFTER DISCHARGE COMMENTS: VS per routine FOLLOW-UP PHYSICIAN FOLLOW-UP: Admit to facility MD LAB ORDERS FOR FOLLOW-UP: CBC with diff, CMP, Prealb in AM after admit TREATMENT/EQUIPMENT ORDERS ADAPTIVE EQUIPMENT NEEDED: IVANA Mac CHEF BROILER OR FRY Dec 29, 2016 08:16
[2016-12-29] MEDS ORDERED: AMOX1TAB58 PO (08:21)
[2016-12-29] MEDS ORDERED: METO5TAB PO (08:21)
[2016-12-29] MEDS ORDERED: IPRA3AMP NEB (08:21)
[2016-12-29] MEDS ORDERED: PANT40TA3 PO (08:21)
[2016-12-29] MEDS ORDERED: LIDOCAINE 1% PF 2 ML VIAL. INJ ONE (09:45)
[2016-12-29] MEDS ORDERED: LIDOCAINE 1% PF 2 ML VIAL. ONE (10:00)
--- NOTE | 2016-12-29 11:40 | PDOC ---
Renal-Progress Notes Subjective Notes Notes FEELING BETTER History of Present Illness Hx of present illness STABLE Vitals Vitals Vital Signs Date Time Temp Pulse Resp B/P (MAP) Pulse Ox O2 Delivery O2 Flow Rate FiO2 12/29/16 07:40 96 Room Air 12/29/16 07:00 97.7 71 19 140/63 (88) 97.7 12/28/16 14:39 2 Weight Weight [ ] I.O. Intake and Output Intake and Output 12/29/16 07:00 Intake Total 700 ml Output Total 100 ml Balance 600 ml Intake Oral 500 ml IV Total 200 ml Output Urine Total 100 ml # Bowel Movements 2 Labs Labs Laboratory Tests Test 12/29/16 04:45 White Blood Count 6.9 x10^3/uL (4.0-11.0) Red Blood Count 3.20 x10^6/uL (4.30-5.70) Hemoglobin 10.6 g/dL (13.0-17.5) Hematocrit 32.9 % (39.0-53.0) Mean Corpuscular Volume 103 fL (79-100) Mean Corpuscular Hemoglobin 33 pg (25-35) Mean Corpuscular Hemoglobin Concent 32 g/dL (31-37) Red Cell Distribution Width 16.3 % (11.5-14.5) Platelet Count 186 x10^3/uL (140-400) Neutrophils (%) (Auto) 76 % (31-73) Lymphocytes (%) (Auto) 15 % (24-48) Monocytes (%) (Auto) 7 % (0-9) Eosinophils (%) (Auto) 2 % (0-3) Basophils (%) (Auto) 1 % (0-3) Neutrophils # (Auto) 5.2 x10^3uL (1.8-7.7) Lymphocytes # (Auto) 1.0 x10^3/uL (1.0-4.8) Monocytes # (Auto) 0.5 x10^3/uL (0.0-1.1) Eosinophils # (Auto) 0.1 x10^3/uL (0.0-0.7) Basophils # (Auto) 0.0 x10^3/uL (0.0-0.2) Sodium Level 140 mmol/L (136-145) Potassium Level 3.2 mmol/L (3.5-5.1) Chloride Level 100 mmol/L (98-107) Carbon Dioxide Level 23 mmol/L (21-32) Anion Gap 17 (6-14) Blood Urea Nitrogen 29 mg/dL (8-26) Creatinine 6.5 mg/dL (0.7-1.3) Estimated GFR (Cockcroft-Gault) 9.8 Glucose Level 67 mg/dL (70-99) Calcium Level 9.0 mg/dL (8.5-10.1) Thyroid Stimulating Hormone (TSH) 1.774 uIU/mL (0.358-3.74) Free Thyroxine 0.83 ng/dL (0.76-1.46) Review of Systems Constitutional: yes: weakness, alert, oriented Ears/Nose/Throat: Yes: no symptom reported Eyes: Yes: no symptom reported Pulmonary: Yes dyspnea Cardiovascular: Yes no symptom reported Gastrointestional: Yes: no symptom reported Genitourinary: Yes: no symptom reported Musculoskeletal: Yes: muscle stiffness Skin: Yes no symptom reported Psychiatric/Neurological: Yes: no symptom reported Endocrine: Yes: no symptom reported Hematologic/Lymphatic: Yes: no symptom reported Physical Exam General Appearance: no apparent distress Skin: warm Respiratory: decreased breath sounds Heart: S1S2 Abdomen: soft, bowel sounds present Genitourinary: bladder flat Extremities: pulses present Neurology: alert, follow commands, Ext weakness Musculoskeletal: Osteoarthritis Assessment Assessment IMP ESRD ANEMIA HTN DYSPHAGIA PNEUMONIA PULM NODULE PLAN HD TODAY UF TO [facility] ANTIBIOT[facility] D/C PENDING JOSSE PLUMMER MD Dec 29, 2016 11:40
[2016-12-29] MEDS ORDERED: IV NORMAL SALINE 1000ML BAG 1,000 ML IV PRN (11:59)
[2016-12-29] MEDS ORDERED: ALBUMIN HUMAN 25% 200 ML IV PRN (12:00)
[2016-12-29] MEDS ORDERED: DIALYSIS PATIENT. MC PRN ×2 (12:00)
--- NOTE | 2016-12-29 12:18 | PDOC ---
PULMONARY PROGRESS NOTES Subjective no soa Vitals Vital Signs Date Time Temp Pulse Resp B/P (MAP) Pulse Ox O2 Delivery O2 Flow Rate FiO2 12/29/16 07:40 96 Room Air 12/29/16 07:00 97.7 71 19 140/63 (88) 97.7 12/28/16 14:39 2 General: Alert, No acute distress Lungs: Clear Cardiovascular: S1, S2 Abdomen: Soft, Non-tender Neuro Exam: Alert Extremities: No Edema Skin: Warm Labs Laboratory Tests Test 12/27/16 17:10 12/28/16 06:37 12/29/16 04:45 Troponin I Quantitative 0.060 ng/mL (0.000-0.055) White Blood Count 5.9 x10^3/uL (4.0-11.0) 6.9 x10^3/uL (4.0-11.0) Red Blood Count 3.20 x10^6/uL (4.30-5.70) 3.20 x10^6/uL (4.30-5.70) Hemoglobin 10.7 g/dL (13.0-17.5) 10.6 g/dL (13.0-17.5) Hematocrit 32.6 % (39.0-53.0) 32.9 % (39.0-53.0) Mean Corpuscular Volume 102 fL (79-100) 103 fL (79-100) Mean Corpuscular Hemoglobin 34 pg (25-35) 33 pg (25-35) Mean Corpuscular Hemoglobin Concent 33 g/dL (31-37) 32 g/dL (31-37) Red Cell Distribution Width 16.1 % (11.5-14.5) 16.3 % (11.5-14.5) Platelet Count 153 x10^3/uL (140-400) 186 x10^3/uL (140-400) Neutrophils (%) (Auto) 77 % (31-73) 76 % (31-73) Lymphocytes (%) (Auto) 11 % (24-48) 15 % (24-48) Monocytes (%) (Auto) 10 % (0-9) 7 % (0-9) Eosinophils (%) (Auto) 2 % (0-3) 2 % (0-3) Basophils (%) (Auto) 0 % (0-3) 1 % (0-3) Neutrophils # (Auto) 4.5 x10^3uL (1.8-7.7) 5.2 x10^3uL (1.8-7.7) Lymphocytes # (Auto) 0.7 x10^3/uL (1.0-4.8) 1.0 x10^3/uL (1.0-4.8) Monocytes # (Auto) 0.6 x10^3/uL (0.0-1.1) 0.5 x10^3/uL (0.0-1.1) Eosinophils # (Auto) 0.1 x10^3/uL (0.0-0.7) 0.1 x10^3/uL (0.0-0.7) Basophils # (Auto) 0.0 x10^3/uL (0.0-0.2) 0.0 x10^3/uL (0.0-0.2) Sodium Level 141 mmol/L (136-145) 140 mmol/L (136-145) Potassium Level 3.3 mmol/L (3.5-5.1) 3.2 mmol/L (3.5-5.1) Chloride Level 102 mmol/L (98-107) 100 mmol/L (98-107) Carbon Dioxide Level 23 mmol/L (21-32) 23 mmol/L (21-32) Anion Gap 16 (6-14) 17 (6-14) Blood Urea Nitrogen 23 mg/dL (8-26) 29 mg/dL (8-26) Creatinine 4.8 mg/dL (0.7-1.3) 6.5 mg/dL (0.7-1.3) Estimated GFR (Cockcroft-Gault) 14.0 9.8 Glucose Level 63 mg/dL (70-99) 67 mg/dL (70-99) Calcium Level 8.7 mg/dL (8.5-10.1) 9.0 mg/dL (8.5-10.1) Thyroid Stimulating Hormone (TSH) 1.774 uIU/mL (0.358-3.74) Free Thyroxine 0.83 ng/dL (0.76-1.46) Laboratory Tests Test 12/29/16 04:45 White Blood Count 6.9 x10^3/uL (4.0-11.0) Red Blood Count 3.20 x10^6/uL (4.30-5.70) Hemoglobin 10.6 g/dL (13.0-17.5) Hematocrit 32.9 % (39.0-53.0) Mean Corpuscular Volume 103 fL (79-100) Mean Corpuscular Hemoglobin 33 pg (25-35) Mean Corpuscular Hemoglobin Concent 32 g/dL (31-37) Red Cell Distribution Width 16.3 % (11.5-14.5) Platelet Count 186 x10^3/uL (140-400) Neutrophils (%) (Auto) 76 % (31-73) Lymphocytes (%) (Auto) 15 % (24-48) Monocytes (%) (Auto) 7 % (0-9) Eosinophils (%) (Auto) 2 % (0-3) Basophils (%) (Auto) 1 % (0-3) Neutrophils # (Auto) 5.2 x10^3uL (1.8-7.7) Lymphocytes # (Auto) 1.0 x10^3/uL (1.0-4.8) Monocytes # (Auto) 0.5 x10^3/uL (0.0-1.1) Eosinophils # (Auto) 0.1 x10^3/uL (0.0-0.7) Basophils # (Auto) 0.0 x10^3/uL (0.0-0.2) Sodium Level 140 mmol/L (136-145) Potassium Level 3.2 mmol/L (3.5-5.1) Chloride Level 100 mmol/L (98-107) Carbon Dioxide Level 23 mmol/L (21-32) Anion Gap 17 (6-14) Blood Urea Nitrogen 29 mg/dL (8-26) Creatinine 6.5 mg/dL (0.7-1.3) Estimated GFR (Cockcroft-Gault) 9.8 Glucose Level 67 mg/dL (70-99) Calcium Level 9.0 mg/dL (8.5-10.1) Thyroid Stimulating Hormone (TSH) 1.774 uIU/mL (0.358-3.74) Free Thyroxine 0.83 ng/dL (0.76-1.46) Medications Active Scripts Medications Dose Route/Sig Max Daily Dose Days Date Category Lindsey Allergy (Fexofenadine Hcl) 180 Mg Tablet 1 Tab PO DAILY 12/27/16 Reported Polyethylene Glycol 3350 17 Gm Powd.pack 17 Gm PO BID 12/27/16 Reported Mucinex (Guaifenesin) 600 Mg Tablet.er 1 Tab PO BID 12/27/16 Reported Tramadol Hcl 50 Mg Tablet 50 Mg PO BID 11/15/16 Rx Sertraline Hcl 25 Mg Tablet 75 Mg PO HS 11/15/16 Rx Vitamin D (Cholecalciferol (Vitamin D3)) 1,000 Unit Tablet 1,000 Unit PO DAILY 11/15/16 Rx Tylenol (Acetaminophen) 325 Mg Tablet 325 Mg PO PRN Q4HRS PRN 11/15/16 Rx Senokot (Sennosides) 8.6 Mg Tablet 1 Tab PO BID 11/14/16 Reported Ranitidine Hcl 150 Mg Capsule 75 Mg PO BID 11/14/16 Reported Melatonin 3 Mg Tablet 6 Mg PO 11/14/16 Reported Colace (Docusate Sodium) 100 Mg Capsule 100 Mg PO 11/14/16 Reported Aspir 81 (Aspirin) 81 Mg Tablet.dr 1 Tab PO DAILY 11/14/16 Reported Protonix (Pantoprazole Sodium) 40 Mg Tablet.dr 40 Mg PO DAILY 11/14/16 Reported Ascorbic Acid 500 Mg Tablet 500 Mg PO DAILY 03/28/14 Reported Nephro-David Rx Tablet (Vit B Cmplx 3/Fa/Vit C/Biotin) 1 Each Tablet 1 Each PO DAILY 07/17/13 Reported Simvastatin 20 Mg Tablet 20 Mg PO HS 01/23/13 Reported Magnesium Oxide 400 Mg Tablet 400 Mg PO BID 01/23/13 Reported Amiodarone Hcl 200 Mg Tablet 200 Mg PO DAILY07 01/23/13 Reported Tylenol (Acetaminophen) 325 Mg Tablet 650 Mg PO BID 01/23/13 Reported NITROGLYCERIN SubLingual (Nitroglycerin) 0.4 Mg Tab.subl 0.4 Mg SL PRN 01/23/13 Reported Impression . 1. Dysphagia to solid food. 2. Abnormal CT chest with tiny nodule in the right upper lobe and mild atelectasis and tiny effusion on the left lower lobe. He is at low risk for malignancy as he has no significant tobacco history. At this time, I would recommend repeating a CT chest in 3-6 months. 3. Abnormal troponin. 4. Gastroesophageal reflux disease. 5. Chronic systolic dysfunction with ejection fraction of 25%. 6. End-stage renal disease, on hemodialysis. 7. Secondary pulmonary hypertension. Plan . 1. From a pulmonary standpoint he is stable, EGD findings c/w Disordered esophageal motility, likely presbyesophagus Mild reflux injury. 2. Nodules are very tiny and he is at low risk for malignancy. A CT chest in 3-6 months would be reasonable. 3. Follow Cardiology recommendation. 4. Follow GI recommendation. 5. Overall pulmonary status stable. We will follow along with you.dc per PCP ELVIS CADENA MD Dec 29, 2016 12:18
--- NOTE | 2016-12-29 13:54 | PDOC ---
G I PROGRESS NOTE Subjective Says swallowing a little better. Note plans to transfer back to [place]. Physical Exam Lungs clear. RRR Abdomen soft, not tender nor distended. Review of Relevant I have reviewed the following items marylu (where applicable) has been applied. Labs Laboratory Tests Test 12/27/16 17:10 12/28/16 06:37 12/29/16 04:45 Troponin I Quantitative 0.060 ng/mL (0.000-0.055) White Blood Count 5.9 x10^3/uL (4.0-11.0) 6.9 x10^3/uL (4.0-11.0) Red Blood Count 3.20 x10^6/uL (4.30-5.70) 3.20 x10^6/uL (4.30-5.70) Hemoglobin 10.7 g/dL (13.0-17.5) 10.6 g/dL (13.0-17.5) Hematocrit 32.6 % (39.0-53.0) 32.9 % (39.0-53.0) Mean Corpuscular Volume 102 fL (79-100) 103 fL (79-100) Mean Corpuscular Hemoglobin 34 pg (25-35) 33 pg (25-35) Mean Corpuscular Hemoglobin Concent 33 g/dL (31-37) 32 g/dL (31-37) Red Cell Distribution Width 16.1 % (11.5-14.5) 16.3 % (11.5-14.5) Platelet Count 153 x10^3/uL (140-400) 186 x10^3/uL (140-400) Neutrophils (%) (Auto) 77 % (31-73) 76 % (31-73) Lymphocytes (%) (Auto) 11 % (24-48) 15 % (24-48) Monocytes (%) (Auto) 10 % (0-9) 7 % (0-9) Eosinophils (%) (Auto) 2 % (0-3) 2 % (0-3) Basophils (%) (Auto) 0 % (0-3) 1 % (0-3) Neutrophils # (Auto) 4.5 x10^3uL (1.8-7.7) 5.2 x10^3uL (1.8-7.7) Lymphocytes # (Auto) 0.7 x10^3/uL (1.0-4.8) 1.0 x10^3/uL (1.0-4.8) Monocytes # (Auto) 0.6 x10^3/uL (0.0-1.1) 0.5 x10^3/uL (0.0-1.1) Eosinophils # (Auto) 0.1 x10^3/uL (0.0-0.7) 0.1 x10^3/uL (0.0-0.7) Basophils # (Auto) 0.0 x10^3/uL (0.0-0.2) 0.0 x10^3/uL (0.0-0.2) Sodium Level 141 mmol/L (136-145) 140 mmol/L (136-145) Potassium Level 3.3 mmol/L (3.5-5.1) 3.2 mmol/L (3.5-5.1) Chloride Level 102 mmol/L (98-107) 100 mmol/L (98-107) Carbon Dioxide Level 23 mmol/L (21-32) 23 mmol/L (21-32) Anion Gap 16 (6-14) 17 (6-14) Blood Urea Nitrogen 23 mg/dL (8-26) 29 mg/dL (8-26) Creatinine 4.8 mg/dL (0.7-1.3) 6.5 mg/dL (0.7-1.3) Estimated GFR (Cockcroft-Gault) 14.0 9.8 Glucose Level 63 mg/dL (70-99) 67 mg/dL (70-99) Calcium Level 8.7 mg/dL (8.5-10.1) 9.0 mg/dL (8.5-10.1) 25-Hydroxy Vitamin D Total 41.5 ng/mL (30-100) Thyroid Stimulating Hormone (TSH) 1.774 uIU/mL (0.358-3.74) Free Thyroxine 0.83 ng/dL (0.76-1.46) Laboratory Tests Test 12/29/16 04:45 White Blood Count 6.9 x10^3/uL (4.0-11.0) Red Blood Count 3.20 x10^6/uL (4.30-5.70) Hemoglobin 10.6 g/dL (13.0-17.5) Hematocrit 32.9 % (39.0-53.0) Mean Corpuscular Volume 103 fL (79-100) Mean Corpuscular Hemoglobin 33 pg (25-35) Mean Corpuscular Hemoglobin Concent 32 g/dL (31-37) Red Cell Distribution Width 16.3 % (11.5-14.5) Platelet Count 186 x10^3/uL (140-400) Neutrophils (%) (Auto) 76 % (31-73) Lymphocytes (%) (Auto) 15 % (24-48) Monocytes (%) (Auto) 7 % (0-9) Eosinophils (%) (Auto) 2 % (0-3) Basophils (%) (Auto) 1 % (0-3) Neutrophils # (Auto) 5.2 x10^3uL (1.8-7.7) Lymphocytes # (Auto) 1.0 x10^3/uL (1.0-4.8) Monocytes # (Auto) 0.5 x10^3/uL (0.0-1.1) Eosinophils # (Auto) 0.1 x10^3/uL (0.0-0.7) Basophils # (Auto) 0.0 x10^3/uL (0.0-0.2) Sodium Level 140 mmol/L (136-145) Potassium Level 3.2 mmol/L (3.5-5.1) Chloride Level 100 mmol/L (98-107) Carbon Dioxide Level 23 mmol/L (21-32) Anion Gap 17 (6-14) Blood Urea Nitrogen 29 mg/dL (8-26) Creatinine 6.5 mg/dL (0.7-1.3) Estimated GFR (Cockcroft-Gault) 9.8 Glucose Level 67 mg/dL (70-99) Calcium Level 9.0 mg/dL (8.5-10.1) 25-Hydroxy Vitamin D Total 41.5 ng/mL (30-100) Thyroid Stimulating Hormone (TSH) 1.774 uIU/mL (0.358-3.74) Free Thyroxine 0.83 ng/dL (0.76-1.46) Medications Current Medications Nitroglycerin (Nitro-Bid Oint) 1 inch 1X ONCE TP Last administered on 02:56; Start 12/27/16 at 03:00; Stop 12/27/16 at 03:01; Status DC Ondansetron HCl (Zofran) 4 mg PRN Q8HRS PRN IV NAUSEA/VOMITING; Start at 04:30; Stop 12/28/16 at 04:29; Status DC Acetaminophen (Tylenol) 650 mg PRN Q4HRS PRN PO FEVER; Start 12/27/16 at 04:30 ; Stop 12/28/16 at 04:29; Status Cancel Nitroglycerin (Nitrostat) 0.4 mg PRN Q5MIN PRN SL CHEST PAIN; Start 12/27/16 at 04:30; Stop 12/28/16 at 04:29; Status DC Aspirin (Children'S Aspirin) 324 mg 1X ONCE PO Last administered on 05:18; Start 12/27/16 at 05:30; Stop 12/27/16 at 05:31; Status DC Acetaminophen (Tylenol) 325 mg PRN Q4HRS PRN PO MILD PAIN / TEMP; Start at 08:15 Acetaminophen (Tylenol) 650 mg BID PO Last administered on 12/28/16 21:12; Start 12/27/16 at 09:00 Amiodarone HCl (Cordarone) 200 mg DAILY07 PO Last administered on 12/29/16 06 :27; Start 12/27/16 at 08:30 Ascorbic Acid (Vitamin C) 500 mg DAILY PO Last administered on 12/28/16 15:33 ; Start 12/27/16 at 09:00 Aspirin (Ecotrin) 81 mg DAILY PO Last administered on 12/28/16 15:31; Start 12/27/16 at 09:00 Vitamin D (Vitamin D3) 1,000 unit DAILY PO Last administered on 12/28/16 15: 31; Start 12/27/16 at 09:00 Docusate Sodium (Colace) 100 mg BID PO Last administered on 12/28/16 21:11; Start 12/27/16 at 09:00 Magnesium Oxide (Magnesium Oxide) 400 mg BID PO Last administered on 21:11; Start 12/27/16 at 09:00 Pantoprazole Sodium (Protonix) 40 mg BIDAC PO Last administered on 12/28/16 17:46; Start 12/27/16 at 09:00 Polyethylene Glycol (miraLAX PACKET) 17 gm BID PO Last administered on 15:30; Start 12/27/16 at 09:00 Sennosides (Senna) 8.6 mg BID PO Last administered on 12/28/16 15:31; Start 12/27/16 at 09:00 Sertraline HCl (Zoloft) 75 mg HS PO Last administered on 12/28/16 21:11; Start 12/27/16 at 21:00 Simvastatin (Zocor) 20 mg HS PO Last administered on 12/28/16 21:11; Start 12/27/16 at 21:00 Tramadol HCl (Ultram) 50 mg BID PO Last administered on 12/28/16 21:12; Start 12/27/16 at 09:00 Vitamin B Complex/ Vitamin C (Lizet-David) 1 tab DAILY PO Last administered on 15:33; Start 12/27/16 at 09:00 Albuterol/ Ipratropium (Duoneb) 3 ml RTQID NEB Last administered on 12/29/16 07:38; Start 12/27/16 at 09:00 Guaifenesin (Mucinex) 600 mg BID PO Last administered on 12/28/16 21:11; Start 12/27/16 at 09:00 Ceftriaxone Sodium 1 gm/ Dextrose 50 ml @ 100 mls/hr Q24H IV ; Start 12/27/16 at 08:15; Status UNV Azithromycin (Zithromax) 250 mg DAILY PO Last administered on 12/28/16 15:32 ; Start 12/27/16 at 09:00 Iohexol (Omnipaque 300 Mg/ml) 75 ml 1X ONCE IV ; Start 12/27/16 at 08:30; Stop 12/27/16 at 08:31; Status DC Iohexol (Omnipaque 240 Mg/ml) 30 ml 1X ONCE PO ; Start 12/27/16 at 08:30; Stop 12/27/16 at 08:31; Status DC Info (Do NOT chart on this entry -- for MONITORING) 1 each PRN DAILY PRN MC SEE COMMENTS; Start 12/27/16 at 08:30; Stop 12/29/16 at 08:29; Status DC Ceftriaxone Sodium (Rocephin) 1 gm Q24H IVP Last administered on 12/28/16 10: 04; Start 12/27/16 at 09:00 Perflutren Protein Type A Microsphe (Optison) 0.66 mg 1X ONCE IV Last administered on 12/27/16 11:57; Start 12/27/16 at 12:00; Stop 12/27/16 at 12 :05; Status DC Lactobacillus Rhamnosus (Culturelle) 1 cap BID PO Last administered on 21:10; Start 12/27/16 at 21:00 Fentanyl Citrate (Fentanyl 2ml Vial) 25 mcg PRN Q5MIN PRN IV X 2 DOSES FOR PAIN ; Start 12/28/16 at 14:00; Stop 12/28/16 at 20:00; Status DC Fentanyl Citrate (Fentanyl 2ml Vial) 50 mcg PRN Q5MIN PRN IV X 2 DOSES FOR PAIN ; Start 12/28/16 at 14:00; Stop 12/28/16 at 20:00; Status DC Sodium Chloride 1,000 ml @ 125 mls/hr Q8H IV Last administered on 12/28/16 14:04; Start 12/28/16 at 13:59; Stop 12/29/16 at 01:58; Status DC Metoclopramide HCl (Reglan) 5 mg TIDACHC PO Last administered on 12/28/16 21: 15; Start 12/28/16 at 16:30 Lidocaine HCl (Xylocaine-Mpf 1% Vial) 2 ml 1X ONCE INJ ; Start 12/29/16 at 09: 45; Stop 12/29/16 at 09:50; Status DC Sodium Chloride 1,000 ml @ 1,000 mls/hr Q1H PRN IV hypotension; Start at 11:59; Stop 12/29/16 at 17:58 Albumin Human 200 ml @ 200 mls/hr 1X PRN PRN IV Hypotension; Start 12/29/16 at 12:00; Stop 12/29/16 at 17:59 Info (PHARMACY MONITORING -- do not chart) 1 each PRN DAILY PRN MC SEE COMMENTS ; Start 12/29/16 at 12:00; Stop 12/29/16 at 12:13; Status DC Info (PHARMACY MONITORING -- do not chart) 1 each PRN DAILY PRN MC SEE COMMENTS ; Start 12/29/16 at 12:00 Active Scripts Active Augmentin 500-125 Tablet (Amoxicillin/Potassium Clav) 1 Each Tablet 1 Tab PO BID Duoneb 0.5-3(2.5) Mg/3 Ml (Albuterol/Ipratropium) 3 Ml Ampul.neb 3 Ml NEB RTQID Metoclopramide Hcl 5 Mg Tablet 5 Mg PO TIDACHC Protonix (Pantoprazole Sodium) 40 Mg Tablet.dr 40 Mg PO BID Tramadol Hcl 50 Mg Tablet 50 Mg PO BID Sertraline Hcl 25 Mg Tablet 75 Mg PO HS Vitamin D (Cholecalciferol (Vitamin D3)) 1,000 Unit Tablet 1,000 Unit PO DAILY Tylenol (Acetaminophen) 325 Mg Tablet 325 Mg PO PRN Q4HRS PRN Reported Lindsey Allergy (Fexofenadine Hcl) 180 Mg Tablet 1 Tab PO DAILY Polyethylene Glycol 3350 17 Gm Powd.pack 17 Gm PO BID Senokot (Sennosides) 8.6 Mg Tablet 1 Tab PO BID Melatonin 3 Mg Tablet 6 Mg PO Colace (Docusate Sodium) 100 Mg Capsule 100 Mg PO Aspir 81 (Aspirin) 81 Mg Tablet.dr 1 Tab PO DAILY Ascorbic Acid 500 Mg Tablet 500 Mg PO DAILY Nephro-David Rx Tablet (Vit B Cmplx 3/Fa/Vit C/Biotin) 1 Each Tablet 1 Each PO DAILY Simvastatin 20 Mg Tablet 20 Mg PO HS Magnesium Oxide 400 Mg Tablet 400 Mg PO BID Amiodarone Hcl 200 Mg Tablet 200 Mg PO DAILY07 Tylenol (Acetaminophen) 325 Mg Tablet 650 Mg PO BID NITROGLYCERIN SubLingual (Nitroglycerin) 0.4 Mg Tab.subl 0.4 Mg SL PRN Vitals/I & O Vital Sign - Last 24 Hours 12/28/16 12/28/16 12/28/16 12/28/16 13:58 14:06 14:24 14:39 Temp 98.3 97.6 97.6 98.3 97.6 97.6 Pulse 86 87 87 Resp 16 16 B/P (MAP) 92/46 116/59 Pulse Ox 98 100 100 O2 Delivery Room Air Nasal Cannula Nasal Cannula O2 Flow Rate 2 2 12/28/16 12/28/16 12/28/16 12/28/16 14:58 15:00 15:30 15:30 Temp 97.5 97.5 Pulse 87 66 92 Resp 18 18 B/P (MAP) 127/58 125/54 (77) 125/54 (77) Pulse Ox 94 100 O2 Delivery Room Air Room Air Room Air Nasal Cannula 12/28/16 12/28/16 12/28/16 12/28/16 15:45 16:15 16:30 17:00 Pulse 88 86 90 84 B/P (MAP) 141/57 (85) 141/69 (93) 141/67 (91) 131/61 (84) O2 Delivery Room Air 12/28/16 12/28/16 12/28/16 12/28/16 17:30 19:10 19:36 20:00 Temp 97.6 97.6 Pulse 84 83 Resp 18 B/P (MAP) 126/57 (80) 107/51 (69) Pulse Ox 100 100 O2 Delivery Room Air Room Air Room Air 12/28/16 12/28/16 12/29/16 12/29/16 21:12 23:05 03:05 06:27 Temp 98.0 97.9 98.0 97.9 Pulse 75 68 77 Resp 17 16 B/P (MAP) 117/44 (68) 128/53 (78) 103/51 Pulse Ox 100 100 O2 Delivery Room Air Room Air Room Air 12/29/16 12/29/16 12/29/16 07:00 07:30 07:40 Temp 97.7 97.7 Pulse 71 Resp 19 B/P (MAP) 140/63 (88) Pulse Ox 100 96 O2 Delivery Room Air Room Air Room Air Intake and Output 12/28/16 12/28/16 12/29/16 15:00 23:00 07:00 Intake Total 200 ml 400 ml 100 ml Output Total 100 ml Balance 200 ml 300 ml 100 ml Problem List Problems Medical Problems: (1) Chest pain Status: Acute (2) End stage renal failure on dialysis Status: Acute (3) Unstable angina Status: Acute Assessment Presbyesophagus GERD Plan of Care: Continue current Tx, Mgmt Plan of Care Note Continue PPI and prokinetic at [place]. CELSO ANDRADE MD Dec 29, 2016 13:54
[2016-12-29] MEDS: LACTOBACILLUS RHAMNOSUS GG 1 CAPSULE. PO SCH (15:03)
[2016-12-29] MEDS: AZITHROMYCIN 250 MG TABLET. PO SCH (15:03)
[2016-12-29] MEDS: cefTRIAXone IV Push 1 GM VIAL. IVP SCH (15:04)
[2017-01-20] MEDS ORDERED: DARB25DI SQ (08:21)
[2017-01-29] MEDS ORDERED: PIPE2.255 IVP (09:36)
[2017-01-29] MEDS ORDERED: IPRA3AMP NEB (09:36)
[2017-01-29] MEDS ORDERED: METO5VIA4 IV (09:36)
[2017-01-29] MEDS ORDERED: DARB25DI SQ (09:36)
[2017-01-29] MEDS ORDERED: ACET650S11 PR (09:36)
[2017-01-29] MEDS ORDERED: FAMO20VI3 IVP (09:36)
[2017-01-29] MEDS ORDERED: [UNRECOGNIZED DRUG - CODE] IV (09:41)
[2017-01-29] MEDS ORDERED: [UNRECOGNIZED DRUG - CODE] IV (09:42)
[2017-02-08] MEDS ORDERED: TRAM50TA PO (19:24)
[2017-02-09] MEDS ORDERED: LORA2ORA7 PO (09:31)
[2017-02-09] MEDS ORDERED: MORP20SY PO (09:31)
== END 2016-12-29 15:15 | disposition home or self-care (01) | DRG 177 ==
LOC: ER 02:25 → 2 SOUTH 04:13
PROVIDERS: ADMIT Internal Medicine; ATTEND Internal Medicine
PROC: 0DJ08ZZ Inspection of Upper Intestinal Tract, Via Natural or Artificial Opening Endoscopic (ICD-10-PCS; principal; 2016-12-28 14:30)
PROC: 5A1D70Z Performance of Urinary Filtration, Intermittent, Less than 6 Hours Per Day (ICD-10-PCS; 2016-12-29)
DX: J69.0 Pneumonitis due to inhalation of food and vomit (principal); N18.6 End stage renal disease; I13.2 Hypertensive heart and chronic kidney disease with heart failure and with stage 5 chronic kidney disease, or end stage renal disease; L89.152 Pressure ulcer of sacral region, stage 2; E44.0 Moderate protein-calorie malnutrition; G62.9 Polyneuropathy, unspecified; I24.8 Other forms of acute ischemic heart disease; I25.3 Aneurysm of heart; I25.110 Atherosclerotic heart disease of native coronary artery with unstable angina pectoris; I50.22 Chronic systolic (congestive) heart failure; I31.3 Pericardial effusion (noninflammatory); I27.29 Other secondary pulmonary hypertension; I48.91 Unspecified atrial fibrillation; D63.1 Anemia in chronic kidney disease; E04.2 Nontoxic multinodular goiter; E21.3 Hyperparathyroidism, unspecified; E53.8 Deficiency of other specified B group vitamins; E78.5 Hyperlipidemia, unspecified; E87.6 Hypokalemia; F32.9 Major depressive disorder, single episode, unspecified; F41.9 Anxiety disorder, unspecified; I25.2 Old myocardial infarction; I25.5 Ischemic cardiomyopathy; I70.0 Atherosclerosis of aorta; I73.9 Peripheral vascular disease, unspecified; K22.8 Other specified diseases of esophagus; K21.9 Gastro-esophageal reflux disease without esophagitis; K57.90 Diverticulosis of intestine, part unspecified, without perforation or abscess without bleeding; R13.10 Dysphagia, unspecified; Z79.82 Long term (current) use of aspirin; Z85.46 Personal history of malignant neoplasm of prostate; Z85.528 Personal history of other malignant neoplasm of kidney; Z90.49 Acquired absence of other specified parts of digestive tract; Z90.5 Acquired absence of kidney; Z95.0 Presence of cardiac pacemaker; Z95.5 Presence of coronary angioplasty implant and graft; Z95.810 Presence of automatic (implantable) cardiac defibrillator; Z99.2 Dependence on renal dialysis
CPT/HCPCS: 99285; C8929; 36415; 71010; 71250; 80048; 80053; 80061; 82306; 84439; 84443; 84484; 85007; 85025; 87641; 93005; 94250; 94640; 94760; J0696; J7030; J7620; J8597; Q0144; Q9956